=== PATIENT | female | born 1940 | race Caucasian/White ===

== ENCOUNTER 2024-05-26 09:58 | Outpatient (AMB) | payer MEDICARE, SELFPAY ==
--- NOTE | 2024-05-26 10:13 | A.OFFVIS_ITS ---
Vital Signs 05/26/24 10:18 Height 5 ft 4.5 in Weight 180 lb 6 oz BMI 30.5 BP 130/70 Blood Pressure Location Lt brachial Pulse 71 Pulse Source Pulse Oximeter Pulse Oximetry (%) 99 Oxygen Delivery Method Room Air Intake Visit Reasons: Arthritis Intake Note: Patient presents for follow up on RA. Accompanied by: Spouse Allergies No Known Allergies Allergy (Verified 05/26/24 10:22) HPI HPI Arthritis: Details: She is experiencing sensation in her toes at night with increased pressure and decreased flexibility. Sometimes she has to wake up and walk and then go back to sleep. It is occurring nightly for a few months. She experiences fatigue and irritability after taking methotrexate on Friday. These symptoms last up until Friday sometimes. She has pain in right knee with walking for the last month. She received cortisone injection to right knee 6 months ago with benefit. PFSH Surgical History (Updated 05/26/24 @ 10:28 by Aleah Tavarez CMA) S/P left knee arthroscopy Family History (Updated 05/26/24 @ 10:30 by Aleah Tavarez CMA) Mother Heart disease Father Parkinson's disease Brother Heart disease Social History (Updated 05/26/24 @ 10:31 by Aleah Tavarez CMA) Alcohol intake: current Alcohol type: wine Patient Tobacco Use Status: Never used Tobacco Review of Systems Const All systems reviewed & are unremarkable except as noted in HPI and below Physical Exam Vital Signs: Last Vital Signs Pulse 71 05/26/24 10:18 BP 130/70 05/26/24 10:18 Pulse Ox 99 05/26/24 10:18 Oxygen Delivery Method Room Air 05/26/24 10:18 BMI result Body Mass Index 30.5 Const Other: General: Comfortable CVS: RRR Respiratory: clear to auscultation bilaterally. Good respiratory effort Skin: No lesions seen MSK: No tenderness of joints in upper extremity. No synovitis. Good range of motion of upper extremity. She has tenderness of paste anserine bursa right knee. No joint line tenderness. Right knee hypertrophy noted. Knee flexion 90 degrees. No MTP tenderness. No tenderness of toes on palpation. Assessment & Plan Assessment & Plan (1) Rheumatoid arthritis: Comment: I am suspecting the discomfort and stiffness in her toes at night is due to inflammatory arthritis. RA is uncontrolled on monotherapy with methotrexate. She is also experiencing fatigue and irritability after taking methotrexate, self-limited. We discussed adding leflunomide. If pain improves with addition of leflunomide, I will decrease methotrexate dose in the future. Code(s): M06.9 - Rheumatoid arthritis, unspecified Category: Medical Qualifiers: Rheumatoid arthritis location: multiple sites Rheumatoid factor presence: unspecified presence Qualified Code(s): M06.9 - Rheumatoid arthritis, unspecified Plan: Continue methotrexate 22.5 mg once weekly Continue leucovorin 10 mg the day after you take methotrexate Start leflunomide 10 mg daily I reviewed labs from 05/25/2024 Labs due in 1 month after starting leflunomide for drug monitoring on high-risk medication Return to clinic in 3 months (2) Other water chemist (current) drug therapy: Code(s): Z79.899 - Other water chemist (current) drug therapy Category: Medical Plan: See above (3) Pes anserinus bursitis of right knee: Comment: Discussed diagnosis and management Code(s): M70.51 - Other bursitis of knee, right knee Category: Medical Plan: PT ordered Apply diclofenac gel 1% to affected area every 4-6 hours Ice knee daily Return to clinic in 3 months. If pain does not improve or worsen, we will con manager care cortisone injection (4) Osteoarthritis of right knee: Comment: Pain is controlled from last cortisone injection 6 months ago Code(s): M17.11 - Unilateral primary osteoarthritis, right knee Category: Medical Qualifiers: Osteoarthritis type: primary Qualified Code(s): M17.11 - Unilateral primary osteoarthritis, right knee Plan: Return to clinic in 3 months Orders: Orders C Reactive Protein 1 Month Z79.899 - Other water chemist (current) drug therapy Aspartate Amino Transferase 1 Month Z79.60 - business owner/engineer (current) use of unspecified immunomodulators and immunosuppressants Complete Blood Count Auto Diff 1 Month Z79.60 - business owner/engineer (current) use of unspecified immunomodulators and immunosuppressants Creatinine 1 Month Z79.60 - [facility] (current) use of unspecified immunomodulators and immunosuppressants PT Evaluation and Treatment Today M70.51 - Other bursitis of knee, right knee Erythrocyte Sedimentation Rate 1 Month Z79.899 - Other water chemist (current) drug therapy Alanine Aminotransferase Today Z79.60 - business owner/engineer (current) use of unspecified immunomodulators and immunosuppressants Hepatitis B,C Profile 1 Month Z79.899 - Other longterm (current) drug therapy T Spot TB 1 Month Z79.899 - Other longterm (current) drug therapy Medications: New leflunomide 10 mg PO DAILY 30 tabs 0RF Coding Level of Care Code Est Pt Level 4 (67157) Complex EM visit Add On G2211 Diagnoses Rheumatoid arthritis involving multiple sites, unspecified whether rheumatoid factor present M06.9 Rheumatoid arthritis location: multiple sites Rheumatoid factor presence: unspecified presence Other longterm (current) drug therapy Z79.899 Pes anserinus bursitis of right knee M70.51 Primary osteoarthritis of right knee M17.11 Osteoarthritis type: primary
[2024-05-26 10:18] VITALS: BP 130/70; PULSE 71; O2SAT 99; BMI 30.5
--- OUTSIDE RECORDS SUMMARY | 2024-05-26 11:03 | XMS_ITS | Data Portability ---
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 Neurological exam including cognitive testing is unrevealing. Plausibly, very mild worsening of memory relating to aging has enabled this focal word retrieval deficit in the context of anxiety so that if she had this significant anxiety several decades ago she would not have had a similar focal word retrieval deficit. However, she does not have any subjective memory worsening of concern. I cannot definitively say that she has mild cognitive impairment different from ? normal aging.? The differentiation between these 2 categories is a estevez area for medical science more generally. In any case, the emergence over the last 5-10 years of difficulty in remembering someone? s name is not causing problems. I offer further cognitive testing and explain Cognivue: Cognivue is a new FDA approved computerized test, 10 minutes in length, consisting of a set of cognitive probes across cognitive domains that was developed by neurologist/neurosci entist team based on cognitive and neurophysiological data over recent decades. Cognivue probes at the cognitive perceptive boundary and is thus relatively free of subjective biases that exist from various paper and pencil neuropsychology tests of cognitive functioning. She is not interested in moving in that direction. Surveillance for modifiable causes of cognitive slowing is indicated. Her history suggests sleep apnea. This has not escaped the notice of the patient or her partner. The patient has been reluctant to move toward testing because she does not like the idea of CPAP. I suggested that diagnostic investigation to see whether she does indeed have sleep apnea is separate from decision making about using CPAP. CPAP equipment has become progressively less onerous through the years and perhaps she would tolerate CPAP without problem if she indeed has sleep apnea. We discussed the long-term morbidity of untreated sleep apnea: Besides cognitive slowing there is also increased risk of right heart failure and increased risk of stroke. After this discussion she is willing at least to have sleep medicine consultation and home polysomnography. She is agreeable to a referral. I defer laboratories for metabolic dysregulation that might cause cognitive slowing? Vitamin D, thyroid studies, B12 studies? to primary care. Separately, she has had May 2017 30 minute event with altered ability to produce appropriate language. This was diagnosed as TIA during presentation to [facility] per the patient? s report. In this context, high intensity statin is indicated. She is on the appropriate statin, atorvastatin, but not on an appropriate high intensity dose, 40 mg or 80 mg. I have asked the patient to follow-up with primary care on this. PLAN Arden Cavanaugh November 16, 2020 You have had TIA. Atorvastatin high intensity, 40 mg, is indicated for ideal protection against future stroke after TIA. You are only on atorvastatin 20 mg and have no side effects. Please follow-up with primary care to consider increasing atorvastatin. Sleep medicine referral, concern for sleep apnea with snoring and snorting noticed by partner, less well rested in the morning, and singular event of word finding difficulty. [facility] [address] [address] Ph. , Please continue your regular habit of moderate exercise daily for at least 20 minutes such as a brisk walk: There are data reflecting benefit of this simple intervention in slowing any emerging cognitive difficulty, and also benefit more generally in brain health and heart health. Follow-up as needed for any neurological issues. [email or web address] Not available 11/16/2020 19:23:30 Plan of Treatment Reminders Order Date Submit Date Provider Last Modified By Organization Details Last Modified Time Details Appointments None recorded. Lab None recorded. Referral sleep medicine referral - Sleep medicine referral, concern for sleep apnea with snoring and snorting noticed by partner, less well rested in the morning, and singular event of word finding difficulty . 2020 021 [email or web address] Not available 21:51:59 Procedures None recorded. Surgeries None recorded. Imaging None recorded. Medication Orders None recorded. Patient TargetsNo targets recorded. Patient InstructionsNo instructions recorded. Reason for Referral Sleep Medicine Referral for Mild neurocognitive disorder Sleep medicine referral, concern for sleep apnea with snoring and snorting noticed by partner, less well rested in the morning, and singular event of word finding difficulty. Referring Physician: Margarito Heaton, Neurology, Encounter Date: 11/16/2020 Medical Equipment None Reported. Allergies No known drug allergies Medications Name Sig Start Date Stop Date Status Note LastModified by Organization Details LastModified Time nystatin 100,000 unit/mL oral suspension SWISH AND SWALLOW 5ML FOUR TIMES DAILY FOR 10 DAYS active Not Available Not Available No t Available atorvastatin 20 mg tablet active Not Available Not Available Not Available metoprolol succinate ER 50 mg tablet,exten ded release 24 hr active Not Available Not Available Not Available fluorouracil 5 % topical cream APPLY A THIN LAYER 2 TIMES DAILY X 2 WEEKS TO AFFECTED AREA ON THE NOSE active Not Available Not Available No t Available metronidazol e 250 mg tablet TAKE 1 TABLET BY MOUTH 4 TIMES A DAY FOR 2 WEEKS active Not Available Not Available Not Available hydralazine 25 mg tablet active Not Available Not Available Not Available methotrexate sodium 2.5 mg tablet TAKE 8 TABLETS BY MOUTH ONCE PER WEEK active Not Available Not Available No t Available omeprazole 20 mg capsule,laci yed release TAKE 1 CAPSULE BY MOUTH TWICE A DAY active Not Available Not Available No t Available leucovorin calcium 5 mg tablet TAKE 4 TABS BY MOUTH WEEKLY 8 TO 12 HOURS AFTER METHOTREXAT E active Not Available Not Available No t Available digoxin 125 mcg (0.125 mg) tablet active Not Available Not Available N ot Available losartan 100 mg tablet active Not Available Not Available No t Available doxycycline hyclate 100 mg tablet TAKE 1 TABLET BY MOUTH TWICE A DAY FOR 14 DAYS active Not Available Not Available No t Available Stomach Relief 262 mg tablet TAKE 2 TABLETS BY MOUTH 4 TIMES A DAY FOR 14 DAYSNOT COVERED BY INS active Not Available Not Available No t Available hydrochlorot hiazide 12.5 mg tablet active Not Available Not Available No t Available Xarelto 20 mg tablet TAKE 1 TABLET BY MOUTH ONCE DAILY active Not Available Not Available No t Available Vitals Date Recorded Body height Body mass index (BMI) Body weight Provider Name and Address Organization Details Last Updated DateTime 11/16/2020 162.56 cm 26.6 kg/m2 31334.82 g Naida Tovarvre [facility] 11/16/2020 15:03:16 Social History Question Answer Notes LastModified by Organizat ion Details LastModified Time Tobacco Smoking Status Never Smoker Naida Jack pietro [facility] 11/16/2020 15:20:33 What Is Your Level Of Alcohol Consumption? Occasional 4oz/day Information not available 11/16/2020 What Is Your Level Of Caffeine Consumption? Occasional 1/day Information not available 11/16/2020 What Is The Highest Grade Or Level Of School You Have Completed Or The Highest Degree You Have Received? [id number] Information not available 11/16/2020 Which Of Your Hands Is Dominant? Right Information not available 11/16/2020 Sex: Unknown Functional Status None recorded. Mental Status None recorded. Family History Relationship Description Onset Age of this Age Resolved Age Notes LastModified by Organization Details LastModified Time Father Heart disease Not available 11/16 15:18:14 Mother Heart disease Not available 11/16 15:18:15 Mother Hypertensive disorder Not available 11/16 15:18:28 Medical History Condition Response High Blood Pressure or Hypertension Y Heart Disease Y Gynecological HistoryNo gynecological history recorded. Obstetrics History GPAL:G 0 P 0 0 0 0 Past Encounters Encounter ID Performer Location Encounter Start Date Encounter Closed Date Diagnosis/Indication Diagnosis SNOMED-CT Code Diagnosis ICD10 Code Diagnosis Note [id number] Margarito Heaton MD [facility] [address] [place] [address] [place] [address] 11/16/2020 14:52:50 11/20/2020 08:10:21 Mild neurocognitive disorder 082299281 G31.84 Health Concerns Section Related Observation LastModified by Organization Detai ls LastModified Time None Recorded Concern Status LastModified by Organization Details LastModified Time None Recorded Advance Directives Directive None Recorded Payers Encounter Date Sequence Insurance Name Policy Number Policy Levine Covered Member ID Levine Member ID Guarantor Name 11/16/2020 2 [place]IC[place]: [employer] Arden Cavanaugh [id number] Arden Cavanaugh 11/16/2020 1 [facility] - MEDICARE PREFERRED (MEDICARE REPLACEMENT HMO) [id number] Arden Cavanaugh [id number] Arden Cavanaugh Notes Date Note Type Note Provider Name and Address Organization Details Recorded Time 11/16/2020 text/html She presents for initial neurology consultation for assessment and management of an episode of not being able to remember the words ? tricycle? or ? bicycle,? September 06, 2020. Past history includes May 2017 TIA with ? words coming out not matching the question,? resulting in ~30 minutes; atrial fibrillation on Xarelto, hypercholesterolemia , high blood pressure, vitamin D deficiency on vitamin D 2000 units daily; and rheumatoid arthritis on methotrexate 7.5 mg weekly and leucovorin 20 mg. She is accompanied by her spouse, Kat Lorenzo, who helps with history and provide support. On September 06, 2020, she was in an anxious state because she had found a bug in her ear while playing golf. During this period of anxiety, she was looking at a tricycle and could not remember the word ? tricycle.? She also could not remember the word ? bicycle.? These were the only 2 words she could not remember. After a few hours, the anxiety went away and she had no problem remembering words. She had never previously had trouble remembering words in such a way. More generally however, she has noticed that her mind is a little slower over the past 5-10 years. She intermittently has trouble remembering somebody? s name. It often comes to her after a while. She has no problem recalling words for other concepts beside someone? s name. She lives with her partner and does all the cooking. The cooking is mostly easy but nevertheless she has had no increased difficulty in this task. She notices no problems remembering to take her medications accurately. She used to do all the bills. In recent years they moved from a house in [facility] and to independent living in her formerly [facility] community. The bills have become higher and her partner has started doing part of the finances. Both patient and partner emphasized that this was not because finances were becoming harder for the patient. She wakes about twice during the night to go to the bathroom and is able to get back to sleep. She does not wake in the morning as refreshed as she used to and occasionally naps during the day. Her partner notices that she snores and sometimes snorts, stopping breathing. Her mood is up and down for a day or 2 every week after she takes methotrexate but otherwise is good. Her partner agrees. She has no hallucination. Margarito Heaton MD [address] [place] [address] [place], [phone], [facility] 11/16/2020 19:25:24 OBGyn Episode No OBEpisode recorded.
== END 2024-05-26 11:16 | disposition home or self-care (01) ==
PROVIDERS: Visit Provider Internal Medicine Rheumatology
DX: M06.9 Rheumatoid arthritis, unspecified (principal); Z79.899 Other long term (current) drug therapy; M70.51 Other bursitis of knee, right knee; M17.11 Unilateral primary osteoarthritis, right knee
CPT/HCPCS: 99214; G2211

== ENCOUNTER 2024-05-26 09:58 | Outpatient (REF) | payer MEDICARE, SELFPAY ==
--- NOTE | ~2024-05-26 | XR_ITS ---
CLINICAL HISTORY: M79.671 - Pain in right foot 3 view right foot Comparison: None Findings: Bones intact. No dislocations. No significant arthritic change or erosions. No ankle effusion. No radiopaque foreign body. IMPRESSION: 1. No acute findings. This document has been electronically signed by: John Salazar MD on 05/28/2024 07:48:03
--- NOTE | ~2024-05-26 | XR_ITS ---
CLINICAL HISTORY: M79.671 - Pain in right foot 3 view left foot Comparison: None Findings: No fractures or dislocations. No significant loss of joint space, osteophytes, or erosions. No ankle effusion. No radiopaque foreign body. IMPRESSION: 1. No acute findings. This document has been electronically signed by: John Salazar MD on 05/28/2024 07:49:52
--- OUTSIDE RECORDS SUMMARY | 2024-05-26 16:52 | XMS_ITS | Continuity of Care Document ---
Author Organization [facility] Address [address] [place] [address] Phone Care Team Providers Care Orange Peel Operator Name Role Phone Davide RUBY, RVT, JOSE, Devante Unavailable U navailable Allergies, Adverse Reactions, Alerts Substance Reaction Status Criticality No Known Allergies Active No Inform ation Medications Medication Instructions Dosage Effective Dates (start - stop) Status Comments Xarelto 2.5 mg tablet - Active Procedures Procedure Date Office/Outpt E&M Established 15 Mins May Phleb Veins - Extrem - To 20 Inj Scleros Solut; Mx Veins 1 3 Duplex Scan-extrem Veins; Uni/ Endovenous Laser, 1st Vein Endovenous Laser, 1st Vein Offic/outpt E&m Estab 5 Min Trial - Tele medicine Office/Outpt E&M Established 15 Mins Dec Duplex Scan-extrem Veins; Uni/ Offic Cons New/estab Low 30 Mi Advance Directives Directive Yes / No Effective Date File Name Other Directive No N/A N/A WARNING:The information contained in this section is historical and is provided for information only and does not constitute a legal document or any assurance that the information is still accurate. Please verify the information with the rueda of the legal document before using it for clinical purposes. Encounters Encounter Description Practice Location Reason(s) For Visit Diagnoses Date Provider Providers Copied on Encounter Office/Outpt E&M Established 15 Mins [facility] [facility], [address] [place] [address] Dr Tirado [address]Alex[place], [id number], [place] tel:[phone] [place] Localized edemaChronic venous hypertension (idiopathic) without complications of right lower extremity 4 Davide RUBY, RVT, JOSE Low. [address] [place] [address], [place], [place], [id number], [place]. tel:[phone] Referring Provider: Fiona Mcdowell, [address] [place] [address], [place], [address]. tel:[phone] [facility] [facility], [address] [place] [address] Dr Tirado [address]Alexia [place], [id number], [place] tel:[phone] [facility] [place] Varicose veins of right lower extremity with other complications Apr- 3 Roosevelt Harrison. [facility] [place] [address], [place], [place], [id number], [place]. tel:[phone] Referring Provider: Fiona Mcdowell, [address] [place] [address], [place], [address]. tel:[phone] [facility], [address] [place] [address] Dr Tirado [address]Suite Alexia Astorga [place], [id number], [place] tel:[phone] [facility] Encounter for follow-up examination after completed treatment for conditions other than malignant neVaricose veins of right lower extremity with pain Apr-0 3 Nabor RUBY FACS RVT JOSE Tom. [facility] [place] [address], [facility] [place], [address], [place]. tel:[phone] Referring Provider: Fiona Mcdowell, [address] [place] [address], [place], [address]. tel:[phone] [facility], [address] [place] [address] Dr Tirado [address]Alexia [place], [id number], [place] tel:[phone] [facility] [place] Varicose veins of right lower extremity with other complications Dec-0 3 Nabor Tom. [address] [place] [address], [facility] [place], [address], [place]. tel:[phone] Referring Provider: Fiona Mcdowell, [address] [place] [address], [place], [address]. tel:[phone] [place] [facility], [address] [place] [address] [address]Alexia [place], [id number], [place] tel:[phone] [facility] Varicose veins of right lower extremity with other complications Dec-0 3 Nabor Tom. [address] [place] [address], [facility] [place], [address], [place]. tel:[phone] Referring Provider: Fiona Mcdowell, [address] [place] [address], [place], [address]. tel:[phone] Offic/outpt E&m Estab 5 Min Trial - [facility]icine [facility], [address] [place] [address] [address]Alexia [place], [id number], [place] tel:[phone] CVR - [facility] Chronic venous hypertension w oth comp of r low extrem Sep- 3 Nabor Tom. [address] [place] [address], [facility] [place], [address], [place]. tel:[phone] Referring Provider: Fiona Mcdowell, [address] [place] [address], [place], [address]. tel:[phone] Office/Outpt E&M Established 15 Mins [facility], [address] [place] [address] [address]Alexia [place], [id number], [place] tel:[phone] CVR - [facility] Chronic venous hypertension w oth comp of r low extrem Aug- 3 Nabor Tom. [address] [place] [address], [place] [address], [place], [address], [place]. tel:[phone] Referring Provider: Fiona Mcdowell, [address] [place] [address], [place], [address]. tel:[phone] [facility], [address] [place] [address] Dr Tirado [address], [place], [id number], [place] tel:[phone] CVR - [facility] Varicose veins of right lower extremities with pain 3 Nabor RUBY FACS T JOSE Tom. [facility] [place] [address], [place], [address], [place]. tel:[phone] Referring Provider: Fiona Mcdowell, [address] [place] [address], [place], [address]. tel:[phone] Offic Cons New/estab Low 30 Mi [facility], [address] [place] [address] Dr Tirado [address], [place], [id number], [place] tel:[phone] [facility] hypertension w oth comp of r low extremFlail joint, unspecified joint 3 Nabor RUBY FACS T JOSE Tom. [address] [place] [address], [place], [address], [place]. tel:[phone] Referring Provider: Fiona Mcdowell, [address] [place] [address], [place], [address]. tel:[phone] Family History Family Member Type Diagnosis Age At Onset No Information Payers Payer name Insurance type Covered democrat ID Lauren cotto(s) [facility] Medicare Advantage [id number] Social History Type Description Quantity Date Captured Comments Alcohol Use Details Unknown Caffeine Use Details Unknown Tobacco Use Status Current non-smoker Smoking Status Never Smoker Non-Smoking Tobacco Use Details : No Details Available : No Details Available Sex Female Vital Signs Date / Time: Height Weight BMI Pulse Rate Blood Pressure Temperature Respiratory Rate Body Surface Area Head Circumference Head Circ. Percentile Wt./Amadeo. Percentile BMI percentile Pulse Ox Inhaled Ox 78.470 kg (173.00 lbs) 28.8 6 kg/m eter (2) 160/100 mm[Hg] Chief Complaint And Reason For Visit No Information Reason For Referral Reason For Referral No Information Plan Of Treatment Date Type Action Status Goal Diet education completed Goal Diet education completed Goal Diet education completed Goal Diet education completed Referral Ordered: Fiona Andrew MD timeframe: 3 Months (related to Essential (primary) hypertension) ordered Referral Ordered: Weight management: Referral to physician timeframe: 3 Months (related to Body mass index (BMI) 28.0-28.9, adult) ordered Referral Ordered: Fiona Andrew MD timeframe: 3 Months (related to Essential (primary) hypertension) ordered Referral Ordered: Weight management: Referral to physician timeframe: 3 Months (related to Body mass index (BMI) 28.0-28.9, adult) ordered History Of Present Illness Encounter Date Complaint History Of Prese nt Illness No Information Functional Status Date Functional Assessmen t No Information Instructions Date Instruction Additional Infor mation Diet education Related to Essen tial (primary) hypertension Exercise education Related to Es sential (primary) hypertension Lifestyle education Related to E ssential (primary) hypertension Diet education Related to Body mass index (BMI) 28.0-28.9, adult Giving Encouragement to exercise Related to Body mass index (BMI) 28.0-28.9, adult Lifestyle education Related to B nate mass index (BMI) 28.0-28.9, adult Patient education booklet given Related to Localized edema Patient education booklet given Related to Chrn Vns Hyprtnsn w/Compl (Pain Edema Swelling); RIGHT Diet education Related to Body mass index (BMI) 28.0-28.9, adult Giving Encouragement to exercise Related to Body mass index (BMI) 28.0-28.9, adult Diet education Related to Essen tial (primary) hypertension Exercise education Related to Es sential (primary) hypertension Lifestyle education Related to E ssential (primary) hypertension Lifestyle education Related to B nate mass index (BMI) 28.0-28.9, adult Patient education booklet given Related to Chronic venous hypertension w oth comp of r low extrem Assessments Type Assessment Date No Information Patient Care Teams Name Effective Dates (start - stop) Status Members No Information
== END 2024-05-26 09:59 | disposition home or self-care (01) ==
LOC: HO.XRAY 09:58
PROVIDERS: Visit Provider Internal Medicine Rheumatology
DX: M79.671 Pain in right foot (principal); M06.9 Rheumatoid arthritis, unspecified; M70.51 Other bursitis of knee, right knee; M17.11 Unilateral primary osteoarthritis, right knee; Z79.60 Long term (current) use of unspecified immunomodulators and immunosuppressants; Z79.899 Other long term (current) drug therapy
CPT/HCPCS: 73630; 99212

== ENCOUNTER → 2024-05-26 14:21 | Outpatient (BNV) | payer MEDICARE, SELFPAY | PROVIDERS: Visit Provider Specialist | DX: M79.671 Pain in right foot (principal); M79.672 Pain in left foot | CPT/HCPCS: 73630 ==

== ENCOUNTER 2024-06-15 09:01 | Outpatient (AMB) | payer MEDICARE, SELFPAY ==
[2024-06-15 09:11] VITALS: BP 126/76; PULSE 106; O2SAT 99; BMI 30.8
--- NOTE | 2024-06-15 09:11 | MHC.OFFVIS ---
Vital Signs 06/15/24 09:11 Height 5 ft 4.5 in Weight 182 lb 4 oz BMI 30.8 BP 126/76 Blood Pressure Location Lt brachial Position Sitting Pulse 106 H Pulse Source Pulse Oximeter Pulse Oximetry (%) 99 Oxygen Delivery Method Room Air Intake Visit Reasons: knee injection Intake Note: Patient presents for follow up on RA, she was last seen on 05/26/[address] Arcos. She states mainly her right knee is more painful. Allergies No Known Allergies Allergy (Verified 06/15/24 09:15) PFSH Surgical History (Updated 05/26/24 @ 10:28 by Aleah Tavarez CMA) S/P left knee arthroscopy Family History (Updated 05/26/24 @ 10:30 by Aleah Tavarez CMA) Mother Heart disease Father Parkinson's disease Brother Heart disease Social History (Updated 05/26/24 @ 10:31 by Aleah Tavarez CMA) Alcohol intake: current Alcohol type: wine Patient Tobacco Use Status: Never used Tobacco Physical Exam Vital Signs: Last Vital Signs Pulse 106 H 06/15/24 09:11 BP 126/76 06/15/24 09:11 Pulse Ox 99 06/15/24 09:11 Oxygen Delivery Method Room Air 06/15/24 09:11 BMI result Body Mass Index 30.8 Const Other: General: Comfortable Skin: No lesions seen MSK: She has tenderness to palpate along right knee joint line. She does not have tenderness on palpation of anserine bursa. Right Knee flexion is limited to 100 degrees Office Procedures AMB Joint Injection/Aspiration Joint Injection/Aspiration Details: Right knee joint Prep: site was prepped using aseptic technique Injected: 40 mg of, Kenalog, with 1 mL of and 1% plain lidocaine Procedure: The patient tolerated the procedure well. Postprocedure protocol was discussed with patient. Coding 81534 - Large joint Procedure code (CPT) selection complete Office Meds lidocaine (PF) 10 mg/mL (1 %) injection solution Performing Provider: Jim Arcos MD Performing Location: [facility] Administered by: Jim Arcos MD on 06/15/24 09:56 Dose Route Admin Location Dispensed Lot Number Expiration Date [facility] Mathematics Teacher 10 mg Infiltration 5 mL [id number] LAKIA/MEGAN Kenalog 40 mg/mL suspension for injection Performing Provider: Jim Arcos MD Performing Location: [facility] Administered by: Jim Arcos MD on 06/15/24 09:56 Dose Route Admin Location Dispensed Lot Number Expiration Date [facility] Mathematics Teacher 40 mg intra-articular 1 mL AP [id number] [employer] Assessment & Plan Assessment & Plan (1) Osteoarthritis of right knee: Comment: Pain pain is not controlled. Last cortisone injection lasted 6 months. Code(s): M17.11 - Unilateral primary osteoarthritis, right knee Category: Medical Qualifiers: Osteoarthritis type: primary Qualified Code(s): M17.11 - Unilateral primary osteoarthritis, right knee Plan: Patient received right knee intra-articular cortisone injection this visit (2) Foot pain, bilateral: Comment: Improving with physical therapy stretches. X-ray bilateral feet did not reveal any arthritic changes. Personally reviewed x-ray with patient. Code(s): M79.671 - Pain in right foot; M79.672 - Pain in left foot Category: Medical Plan: Continue physical therapy Orders: Orders AMB Joint Injection/Aspiration Today M17.11 - Unilateral primary osteoarthritis, right knee Medications: New lidocaine (PF) 10 mg Infiltration ONCE 1 mL 0RF M17.11 - Unilateral primary osteoarthritis, right knee Kenalog (triamcinolone acetonide) 40 mg intra-articular ONCE 1 mL 0RF NS M17.11 - Unilateral primary osteoarthritis, right knee Coding Level of Care Code Est Pt Level 4 (44825) Diagnoses Primary osteoarthritis of right knee M17.11 Osteoarthritis type: primary Foot pain, bilateral M79.671; M79.672 CPT Codes Coding - 96714 Large joint: 68838 - Large joint ([id number])
--- OUTSIDE RECORDS SUMMARY | 2024-06-15 09:22 | XMS_ITS | Data Portability ---
Author Organization [facility] [employer] Address [address] [place] [address] BREANN [place]RIOS [address] Care Team Providers Care Technical Applications Scientist Name Role Phone ERIC BUTTS Referring Provider LUCHO FERNÁNDEZ Referring Provider [phone] Assessment Encounter Date Assessment Date Assessment LastModified [...] was diagnosed as TIA during presentation to [facility] per the patient? s report. In [...] word finding difficulty. Sleep Medicine Services of [address] [address] Ph. , Please continue your regular habit [...] Updated DateTime 11/16/2020 162.56 cm 26.6 kg/m2 20607.82 g Naida Tovarvre [facility] 11/16/2020 15:03:16 Social History Question Answer Notes LastModified by Organizat ion Details LastModified Time Tobacco Smoking Status Never Smoker Naida Jack pietro [facility] 11/16/2020 15:20:33 What Is Your Level Of Alcohol Consumption? Occasional 4oz/day Information not available 11/16/2020 What Is Your Level Of Caffeine Consumption? Occasional 1/day Information not available 11/16/2020 What Is The Highest Grade Or Level Of School You Have Completed Or The Highest Degree You Have Received? [id number] Information not available 11/16/2020 Which Of Your [...] Code Diagnosis Note 1180 Margarito Heaton MD [facility] [address] [place] [address] [place] [address] 11/16/2020 14:52:50 11/20/2020 08:10:21 Mild neurocognitive disorder [id number] G31.84 Health Concerns Section Related Observation LastModified by Organization Detai ls LastModified Time None Recorded Concern Status LastModified by Organization Details LastModified Time None Recorded Advance Directives Directive None Recorded Payers Encounter Date Sequence Insurance Name Policy Number Policy Levine Covered Member ID Levine Member ID Guarantor Name 11/16/2020 2 [place]IC[place]: [employer] Arden Cavanaugh [id number] Arden Cavanaugh 11/16/2020 1 [facility] - MEDICARE PREFERRED (MEDICARE REPLACEMENT HMO) [id number] Arden Cavanaugh [id number] Arden Cavanaugh Notes Date Note Type [...] years they moved from a house in [facility] and to independent living in her [facility] care community. The bills have become higher [...] She has no hallucination. Margarito Heaton MD [address] [place] [address] [place], [address], [facility] 11/16/2020 19:25:24 OBGyn Episode No OBEpisode recorded.
== END 2024-06-15 09:55 | disposition home or self-care (01) ==
PROVIDERS: Visit Provider Internal Medicine Rheumatology
DX: M17.11 Unilateral primary osteoarthritis, right knee (principal); M79.671 Pain in right foot; M79.672 Pain in left foot
CPT/HCPCS: 20610; 99214

== ENCOUNTER → 2024-06-15 09:01 | Outpatient (BNVA) | payer MEDICARE, SELFPAY | PROVIDERS: Visit Provider Internal Medicine Rheumatology | DX: M17.11 Unilateral primary osteoarthritis, right knee (principal); M79.671 Pain in right foot; M79.672 Pain in left foot | CPT/HCPCS: 20610; 99212; J2003; J3300 ==

== ENCOUNTER 2024-09-02 09:24 | Outpatient (REF) | payer MEDICARE, SELFPAY ==
--- OUTSIDE RECORDS SUMMARY | 2024-09-02 12:02 | XMS_ITS | Clinical Summary ---
Author Organization [facility] [employer] Address [address] [place], [place] [address] Phone Care Team Providers Care Resident Care Supervisor Name Role Phone Fiona Andrew MD Primary Care Provider [phone]- [phone] Allergies Active Allergy Reactions Criticality Noted Date Comments Wdhvmheh-Isufcnoja-Znplpxd ne 07/07/2020 Sensitivity to antibiotics: stomach upset-Allergy [...] Problems Problem Noted Date Diagnosed Date A-fib (CMS/[facility] V24, [facility] V28) 04/13/2024 Overview (04/13/2024): Last Assessment & [...] Description 06/21/2024 10:00 AM EST Office Visit [facility] [address] [place] [address] Aron Redding MD Mitral and aortic regurgitation (Primary Dx); Paroxysmal atrial fibrillation ([facility] V24, [facility] V28) from Last 3 Months Surgical History Surgery Date Site/Laterality Comments KNEE ARTHROSCOPY 2010 Left PROCEDURE: MD ARTHROSCOPY AID TX SPINE&/FX KNEE W/O FIXJ MOLE REMOVAL PROCEDURE: HISTORICAL MOLE (REMOVAL OF) KNEE SURGERY 2010 Left PROCEDURE: HISTORICAL KNEE SURGERY Medical History Medical History Date Comments Rheumatoid arthritis ([facility]/ C V24, [facility] V28) DX:Rheumatoid arthritis ([facility] ) A-fib ([facility] V24, [facility] V28) DX:A-fib ([facility]) History of Helicobacter pylo ri infection DX:History [...] Description 09/20/2024 10:30 AM EDT Ancillary Procedure [facility] [address] [place] [address] Health Maintenance Due Date Last [...] Most Recently Relevant to Health Maintenance Insurance [facility] Care Teams Resident Care Supervisor Relationship Specialty Start Date End Date Fiona Andrew MD [address] [place] [phone] PCP - General 06/16/20
--- OUTSIDE RECORDS SUMMARY | 2024-09-02 12:02 | XMS_ITS | Continuity of Care Document ---
Author Organization [facility] Address [address] [place] [address] Phone Care Team Providers Care Selling Underwriter Name Role Phone Davide RUBY, RVT, JOSE, [...] on Encounter Office/Outpt E&M Established 15 Mins [facility], [address] [place] [address] Dr Tirado [address]Alexia [place], [id number], [place] tel:[phone] CVR - MD - Ronan Localized edemaChronic venous hypertension (idiopathic) without complications of right lower extremity 4 Davide RUBY, RVT, JOSE Low. [address] [place] [address], [place], [place], [id number], [place]. tel:[phone] Referring Provider: Fiona Mcdowell, [address] [place] [address], [place], [address]. tel:[phone] [facility], [address] [place] [address] Dr Tirado [address]Alexia [place], [id number], [place] tel:[phone] CVR - MD - Ronan Varicose veins of right lower extremity with other complications Apr- 3 Roosevelt Harrison. [facility] [place] [address], [place], [place], [id number], [place]. tel:[phone] Referring Provider: Fiona Mcdowell, [address] [place] [address], [place], [address]. tel:[phone] [facility], [address] [place] [address] Dr Tirado 1000Suite Alexia Astorga [place], [id number], [place] tel:[phone] CVR - MD - Ronan Encounter for follow-up examination after completed treatment for conditions other than malignant neVaricose veins of right lower extremity with pain Apr-0 3 Nabor RUBY FACS RVT JOSE Tom. [facility] [place] [address], [place], [address], [place]. tel:[phone] Referring Provider: Fiona Mcdowell, [address] [place] [address], [place], [address]. tel:[phone] [facility], [address] [place] [address] Dr Tirado [address]Alexia [place], [id number], [place] tel:[phone] CVR - MD - Ronan Varicose veins of right lower extremity with other complications Dec-0 3 Nabor Tom. [address] [place] [address], [place], [address], [place]. tel:[phone] Referring Provider: Fiona Mcdowell, [address] [place] [address], [place], [address]. tel:[phone] [facility], [address] [place] [address] [address]Alexia [place], [id number], [place] tel:[phone] CVR - MD - Ronan Varicose veins of right lower extremity with other complications Dec-0 3 Nabor Tom[address] [place] [address], [facility] [place], [address], [place]. tel:[phone] Referring Provider: Fiona Mcdowell, [address] [place] [address], [place], [address]. tel:[phone] Offic/outpt E&m Estab 5 Min Trial - Telemedicine [facility], [address] [place] [address] [address]Alexia [place], [id number], [place] tel:[phone] CVR - [facility] Chronic venous hypertension w oth comp of r low extrem Sep- 3 Nabor Tom. [address] [place] [address], [facility] [place], [address], [place]. tel:[phone] Referring Provider: Fiona Mcdowell, [address] [place] [address], [place], [address]. tel:[phone] Office/Outpt E&M Established 15 Mins [facility], [address] [place] [address] [address]Alexia [place], [id number], [place] tel:[phone] CVR - [facility] Chronic venous hypertension w oth comp of r low extrem Aug- 3 Nabor Tom. [address] [place] [address], [place] [address], [place], [address], [place]. tel:[phone] Referring Provider: Fiona Mcdowell, [address] [place] [address], [place], [address]. tel:[phone] [facility], [address] [place] [address] Dr [address], [place], [id number], [place] tel:[phone] CVR - [facility] Varicose veins of right lower extremities with pain 3 Nabor RUBY FACS T JOSE Tom. [facility] [address], [place], [address], [place]. tel:[phone] Referring Provider: Fiona Mcdowell, [address] [place] [address], [place], [address]. tel:[phone] Offic Cons New/estab Low 30 Mi [facility], [address] [place] [address] Dr Tirado [address], [place], [id number], [place] tel:[phone] [facility] venous hypertension w oth comp of r low extremFlail joint, unspecified joint 3 Nabor RUBY FACS T JOSE Tom. [address] [place] [address], [place], [address], [place]. tel:[phone] Referring Provider: Fiona Mcdowell, [address] [place] [address], [place], [address]. tel:[phone] Family History Family Member Type Diagnosis Age At Onset No Information Payers Payer name Insurance type Covered constitution party ID Lauren cotto(s) [facility] Medicare Advantage [id number] Social History Type Description Quantity Date Captured [...] index (BMI) 28.0-28.9, adult) ordered Referral Ordered: Finoa Andrew MD timeframe: 3 Months (related to [...]
[2024-09-02 17:39] LABS: MANUAL DIFF FLAG NO
[2024-09-02 17:51] LABS: Basophils Percent Auto 0.5 % (0-2); Eosinophils Absolute Auto 0.3 X10*3/uL (0.0-0.4); Eosinophils Percent Auto 5.3 % (0-4); Hematocrit 42.3 % (37.0-47.0); Imm Gran Abs Auto 0.03 X10*3/uL (0.00-0.03); Imm Gran Pct Auto 0.5 % (0.0-0.4); Lymphocytes Absolute Auto 0.9 X10*3/uL (1.2-4.9); Lymphocytes Percent Auto 16.5 % (20-40); Mean Corpuscular HGB Conc 33.1 g/dl (31.0-35.0); Mean Corpuscular Hemoglobin 33.5 pg (27.0-33.0); Mean Corpuscular Volume 101.2 fL (80.0-98.0); Monocytes Absolute Auto 0.6 X10*3/uL (0.1-1.2); Monocytes Percent Auto 11.2 % (2-11); Neutrophils Absolute Auto 3.8 x10*3/uL (2.0-8.3); Platelet Count 256 X10*3/uL (160-400); Red Blood Count 4.18 X10*6/uL (4.20-5.50); Red Cell Distribution Width 14.1 % (11.0-16.0); White Blood Count 5.7 X10*3/uL (4.8-10.8)
[2024-09-02 18:15] LABS: Alanine Aminotransferase 14 U/L (0-31); Aspartate Amino Transferase 41 U/L (5-31); C Reactive Protein 0.99 mg/dL (< or = 0.50); Estimated Glomerular Filt Rate > 60
[2024-09-02 18:26] LABS: Erythrocyte Sedimentation Rate 32 MM/HR (0-20)
[2024-09-03 03:51] LABS: HBc Num1 0.59 S/CO (0.00-0.79); HBsAGNum1 0.29 S/CO (0.00-0.99); Hepatitis B Core Antibody Nonreactive (Nonreactive); Hepatitis B Surface Antigen Negative (Negative); ~HepC Num1 0.22 S/CO (0.00-0.79); ~Hepatitis B Surface Antibody NONREACTIVE (Nonreactive); ~Hepatitis C Antibody Nonreactive (Nonreactive)
[2024-09-05 07:29] LABS: TS Negative Control Passed; TS Panel A 0; TS Panel B 0; TS Positive Control Passed; TSpotTB Negative (Negative)
== END 2024-09-02 09:25 | disposition home or self-care (01) ==
LOC: HO.HKASLDS 09:24
PROVIDERS: PCP Family Medicine; Visit Provider Internal Medicine Rheumatology
DX: Z13.89 Encounter for screening for other disorder (principal)
CPT/HCPCS: 36415; 82565; 84450; 84460; 85025; 85652; 86140; 86481; 86704; 86706; 86803; 87340

== ENCOUNTER 2024-09-02 09:24 | Outpatient (AMB) | payer MEDICARE, SELFPAY ==
--- NOTE | 2024-09-02 09:27 | A.OFFVIS_ITS ---
Vital Signs 09/02/24 09:34 Height 5 ft 4 in Weight 179 lb 3.773 oz BMI 30.8 BP 150/100 H Blood Pressure Location Rt brachial Position Sitting Pulse 115 H Pulse Oximetry (%) 95 Oxygen Delivery Method Room Air Intake Visit Reasons: 3 mo follow up Intake Note: Patient presents for follow up on RA. Accompanied by: Self / Same As Patient Allergies No Known Allergies Allergy (Verified 09/02/24 09:35) HPI HPI 3 mo follow up: Details: She experiences increased fatigue on Friday. She takes methotrexate on Friday and leucovorin on Friday. Last cortisone injection of right knee only lasted 1 week. She has limited with ambulation. She dreads walking more than 50 ft due to uncontrolled pain. She takes Tylenol 500 mg at night. She has been using diclofenac gel. [facility] Surgical History S/P left knee arthroscopy Family History Mother Heart disease Father Parkinson's disease Brother Heart disease Social History Alcohol intake: current Alcohol type: wine Patient Tobacco Use Status: Never used Tobacco Review of Systems Const All systems reviewed & are unremarkable except as noted in HPI and below Physical Exam Vital Signs: Last Vital Signs Pulse 115 H 09/02/24 09:34 BP 150/100 H 09/02/24 09:34 Pulse Ox 95 09/02/24 09:34 Oxygen Delivery Method Room Air 09/02/24 09:34 BMI result Body Mass Index 30.8 Const Other: General: Comfortable CVS: RRR Respiratory: clear to auscultation bilaterally. Good respiratory effort Skin: No lesions seen MSK: No tenderness of joints in upper extremity. No synovitis. Normal range of motion of upper extremity. Right knee hypertrophy noted with tenderness along joint line. Knee flexion 90 degrees. No ankle or MTP tenderness. Office Procedures AMB Joint Injection/Aspiration Joint Injection/Aspiration Details: Right knee joint Prep: site was prepped using aseptic technique Injected: 40 mg of, Kenalog, with 1 mL of and 1% plain lidocaine Procedure: The patient tolerated the procedure well. Postprocedure protocol was discussed with patient. Coding 89597 - Large joint Procedure code (CPT) selection complete Office Meds lidocaine (PF) 10 mg/mL (1 %) injection solution Performing Provider: Jim Arcos MD Performing Location[place] [facility] Administered by: Jim Arcos MD on 09/02/24 10:25 Dose Route Admin Location Dispensed Lot Number Expiration Date [facility] Arborist Climber 10 mg Infiltration 2 mL [id number] FRESENIUS KA Kenalog 40 mg/mL suspension for injection Performing Provider: Jim Arcos MD Performing Location: [facility] Administered by: Jim Arcos MD on 09/02/24 10:25 Dose Route Admin Location Dispensed Lot Number Expiration Date [facility] Arborist Climber 40 mg intra-articular 1 mL [id number] [facility] Assessment & Plan Assessment & Plan (1) Rheumatoid arthritis: Comment: Controlled on monotherapy with methotrexate. She is experiencing increased fatigue after taking methotrexate. 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 Methotrexate started 2015 to present. Code(s): M06.9 - Rheumatoid arthritis, unspecified Category: Medical Qualifiers: Rheumatoid arthritis location: multiple sites Rheumatoid factor presence: unspecified presence Qualified Code(s): M06.9 - Rheumatoid arthritis, unspecified Plan: Reduced dose of methotrexate to 15 mg once weekly split dose (3 tablets a.m. and 3 tablets p.m.) Continue leucovorin 10 mg 24 hours after taking methotrexate. If she continues to have fatigue with above changes, I can change leucovorin administration 8 hours after methotrexate Labs for disease monitoring on high-risk medication ordered Return to clinic in 3 months (2) Other longitudinal float operator (current) drug therapy: Code(s): Z79.899 - Other longitudinal float operator (current) drug therapy Category: Medical Plan: See above (3) Osteoarthritis of right knee: Comment: Pain pain is not controlled. She received cortisone injection 05/2023 and 05/2024 Code(s): M17.11 - Unilateral primary osteoarthritis, right knee Category: Medical Qualifiers: Osteoarthritis type: primary Qualified Code(s): M17.11 - Unilateral primary osteoarthritis, right knee Plan: Patient received cortisone injection this visit If benefit from cortisone injection is not long lasting, we discussed considering Euflexxa injections. Patient will call office if cortisone injection wears off before next appointment to process VIKY for Euflexxa Right knee x-ray ordered for evaluation of progression of osteoarthritis Continue to use Tylenol 500 mg q.h.s.. She will contact developer architect's to discuss if she can take more Tylenol if she needs it during the day with consideration of being on Xarelto Continue diclofenac gel 1% applied to affected area every 4-6 hours as needed Return to clinic in 3 months Orders: Orders Complete Blood Count Auto Diff Today Z79.60 - terminal press operator (current) use of unspecified immunomodulators and immunosuppressants Creatinine Today Z79.60 - USP (current) use of unspecified immunomodulators and immunosuppressants C Reactive Protein Today Z79.899 - Other senior living (current) drug therapy T Spot TB Today M06.9 - Rheumatoid arthritis, unspecified, Z79.899 - Other longitudinal float operator (current) drug therapy AMB Joint Injection/Aspiration Today M17.11 - Unilateral primary osteoarthritis, right knee Alanine Aminotransferase Today Z79.60 - USP (current) use of unspecified immunomodulators and immunosuppressants Aspartate Amino Transferase Today Z79.60 - USP (current) use of unspecified immunomodulators and immunosuppressants Erythrocyte Sedimentation Rate Today Z79.899 - Other senior living (current) drug therapy Hepatitis B,C Profile Today M06.9 - Rheumatoid arthritis, unspecified, Z79.899 - Other senior living (current) drug therapy XR knee RT 2V Today M17.0 - Bilateral primary osteoarthritis of knee Medications: New leucovorin calcium 10 mg on Friday 10 mg PO DAILY 90 tabs 4RF leg brace (EPIFANIO Knee Brace) As directed Right knee hinged brace Diagnosis: Knee osteoarthritis 1 ea 0RF Changed From methotrexate sodium 17.5 mg (7 x 2.5 mg) PO QWEEK 28 tabs 2RF To methotrexate sodium 15 mg (6 x 2.5 mg) PO QWEEK 28 tabs 2RF Coding Level of Care Code Est Pt Level 4 (93731) Complex EM visit Add On G2211 Diagnoses Rheumatoid arthritis involving multiple sites, unspecified whether rheumatoid factor present M06.9 Rheumatoid arthritis location: multiple sites Rheumatoid factor presence: unspecified presence Other senior living (current) drug therapy Z79.899 Primary osteoarthritis of right knee M17.11 Osteoarthritis type: primary CPT Codes Coding - 43924 Large joint: 54485 - Large joint ([id number]) Time Spent (min) 30
[2024-09-02 09:34] VITALS: BP 150/100; PULSE 115; O2SAT 95; BMI 30.8
--- OUTSIDE RECORDS SUMMARY | 2024-09-02 10:19 | XMS_ITS | Data Portability ---
Author Organization [facility] [employer], S B E Address [address] [place] [address] [place] [address] Care Team Providers Care Field Servicer Name Role Phone ERIC BUTTS Referring Provider LUCHO FERNÁNDEZ Referring Provider Assessment Encounter Date Assessment Date Assessment LastModified [...] has mild cognitive impairment different from ? n ormal aging.? The differentiation between these 2 categories [...] metabolic dysregulation that might cause cognitive slowing? V itamin D, thyroid studies, B12 studies? t o primary care. Separately, she has had May 2017 30 minute event with altered ability to produce appropriate language. This was diagnosed as TIA during presentation to [facility] per the patient? s report. In this [...] word finding difficulty. Sleep Medicine Services of [address] [address] Ph. , Please continue your regular habit of moderate exercise daily for at least 20 minutes such as a brisk walk: There are data reflecting benefit of this simple intervention in slowing any emerging cognitive difficulty, and also benefit more generally in brain health and heart health. Follow-up as needed for any neurological issues. balta Not available 11/16/2020 19:23:30 Plan of Treatment Reminders Order Date Submit Date Provider Last Modified By Organization Details Last Modified Time Details Appointments None recorded. Lab None recorded. Referral sleep medicine referral - Sleep medicine referral, concern for sleep apnea with snoring and snorting noticed by partner, less well rested in the morning, and singular event of word finding difficulty . 2020 Joaquina carter 1 Not available 21:51:59 Procedures None recorded. [...] Updated DateTime 11/16/2020 162.56 cm 26.6 kg/m2 62032.82 g Naida [facility] 11/16/2020 15:03:16 Social History Question Answer Notes LastModified by Organizat ion Details LastModified Time Tobacco Smoking Status Never Smoker Naida [facility] 11/16/2020 15:20:33 What Is Your Level Of Alcohol Consumption? Occasional 4oz/day Information not available 11/16/2020 What Is Your Level Of Caffeine Consumption? Occasional 1/day Information not available 11/16/2020 What Is The Highest Grade Or Level Of School You Have Completed Or The Highest Degree You Have Received? [id number] Information not available 11/16/2020 Which Of Your [...] Code Diagnosis Note 1180 Margarito Heaton MD [facility] [address] [place] [address] [place] [address] 11/16/2020 14:52:50 11/20/2020 08:10:21 Mild neurocognitive disorder 093719788 G31.84 Health Concerns Section Related Observation LastModified by Organization Detai ls LastModified Time None Recorded Concern Status LastModified by Organization Details LastModified Time None Recorded Advance Directives Directive None Recorded Payers Encounter Date Sequence Insurance Name Policy Number Policy Levine Covered Member ID Levine Member ID Guarantor Name 11/16/2020 2 MEDICARE [place]: [email or web address] Arden Cavanaugh [id number] Arden Cavanaugh 11/16/2020 1 [facility] - MEDICARE PREFERRED (MEDICARE REPLACEMENT HMO) [id number] Arden Cavanaugh [id number] Arden Cavanaugh Notes Date Note Type Note Provider Name and Address Organization Details Recorded Time 11/16/2020 text/html She presents for initial neurology consultation for assessment and management of an episode of not being able to remember the words ? t ricycle? or ? b icycle,? September 06, 2020. Past history includes May 2017 TIA with ? w ords coming out not matching the question,? resulting in ~30 minutes; atrial fibrillation on Xarelto, hypercholesterolemi a, high blood pressure, vitamin D deficiency on [...] and could not remember the word ? t ricycle.? She also could not remember the word ? b icycle.? These were the only 2 words she [...] years they moved from a house in [facility] and to independent living in her continued care community. The bills have become higher [...] She has no hallucination. Margarito Heaton MD [address] [place] [address] [place], [address], [facility] 11/16/2020 19:25:24 OBGyn Episode No OBEpisode recorded.
--- OUTSIDE RECORDS SUMMARY | 2024-09-02 10:19 | XMS_ITS | Continuity of Care Document ---
Author Organization [facility] Address [address] [place] [address] Phone Care Team Providers Care Business Project Manager Name Role Phone Davide RUBY, RVT, JOSE, [...] on Encounter Office/Outpt E&M Established 15 Mins [facility], [address] [place] [address] Dr Tirado [address], [id number], [place] tel:[phone] [facility] [place] Localized edemaChronic venous hypertension (idiopathic) without complications of right lower extremity 4 Davide RUBY, RVT, JOSE Low. [address] [place] [address], [place], [place], [id number], [place]. tel:[phone] Referring Provider: Fiona Mcdowell, [address] [place] [address], [place], [address]. tel:[phone] [facility], [address] [place] [address] Dr Tirado [address]Alex[place], [id number], [place] tel:[phone] [facility] [place] Varicose veins of right lower extremity with other complications Apr- 3 Roosevelt Harrison. [facility] [place] [address], [place], [place], [id number], [place]. tel:[phone] Referring Provider: Fiona Mcdowell, [address] [place] [address], [place], [address]. tel:[phone] [facility], [address] [place] [address] Dr Tirado [address] Alexia [place], [id number], [place] tel:[phone] [facility] [place] Encounter for follow-up examination after completed treatment for conditions other than malignant neVaricose veins of right lower extremity with pain Apr-0 3 Nabor RUBY FACS RVT JOSE Tom. [facility] [place] [address], [facility] [place], [address], [place]. tel:[phone] Referring Provider: Fiona Mcdowell, [address] [place] [address], [place], [address]. tel:[phone] [facility], [address] [place] [address] Dr Tirado [address]Alexia [place], [id number], [place] tel:[phone] [facility] [place] Varicose veins of right lower extremity with other complications Dec-0 3 Nabor Tom. [address] [place] [address], [facility] [place], [address], [place]. tel:[phone] Referring Provider: Fiona Mcdowell, [address] [place] [address], [place], [address]. tel:[phone] [facility], [address] [place] [address] [address]Alexia [place], [id number], [place] tel:[phone] [facility] [place] [facility] [place] Varicose veins of right lower extremity with other complications Dec-0 3 Nabor Tom. [address] [place] [address], [facility] [place], [address], [place]. tel:[phone] Referring Provider: Fiona Mcdowell, [address] [place] [address], [place], [address]. tel:[phone] Offic/outpt E&m Estab 5 Min Trial - Telemedicine [facility], [address] [place] [address] [address]Alexia [place], [id number], [place] tel:[phone] CVR - [facility] Chronic venous hypertension w oth comp of r low extrem Sep- 3 Nabor Tom. [address] [place] [address], [facility] [place], [address], [place]. tel:[phone] Referring Provider: Fiona Mcdowell, [address] [place] [address], [place], [address]. tel:[phone] Office/Outpt E&M Established 15 Mins [facility], [address] [place] [address] [address]Alexia [place], [id number], [place] tel:[phone] CVR - [facility] Chronic venous hypertension w oth comp of r low extrem Aug- 3 Nabor Tom. [address] [place] [address], [place] [address], [place], [address], [place]. tel:[phone] Referring Provider: Fiona Mcdowell, [address] [place] [address], [place], [address]. tel:[phone] [facility], [address] [place] [address] Dr [address], [place], [id number], [place] tel:[phone] CVR - [facility] Varicose veins of right lower extremities with pain 3 Nabor RUBY FACS T JOSE Tom. [facility] [address], [place], [address], [place]. tel:[phone] Referring Provider: Fiona Mcdowell, [address] [place] [address], [place], [address]. tel:[phone] Offic Cons New/estab Low 30 Mi [facility], [address] [place] [address] Dr Tirado [address], [place], [id number], [place] tel:[phone] [facility] venous hypertension w oth comp of r low extremFlail joint, unspecified joint 3 Nabor RUBY FACS T JOSE Tom. [address] [place] [address], [place], [address], [place]. tel:[phone] Referring Provider: Fiona Mcdowell, [address] [place] [address], [place], [address]. tel:[phone] Family History Family Member Type Diagnosis Age At Onset No Information Payers Payer name Insurance type Covered alliance party ID Lauren cotto(s) [facility] Medicare Advantage [id number] Social History Type Description Quantity Date Captured [...]
--- OUTSIDE RECORDS SUMMARY | 2024-09-02 10:19 | XMS_ITS | Clinical Summary ---
Author Organization [facility] [employer] Address [address] [place], [place] [address] Phone Care Team Providers Care Plastic Molding Operator Name Role Phone Fiona Andrew MD Primary Care Provider [phone] Allergies Active Allergy Reactions Criticality Noted Date Comments Dccpieoy-Yadzejjtn-Bovwtzu ne 07/07/2020 Sensitivity to antibiotics: stomach upset-Allergy Medications atorvastatin (LIPITOR) 20 mg tablet Take 1 tablet (20 mg total) by mouth 1 (one) time each day. Active cholecalciferol , vitamin D3, 75 mcg (3,000 unit) tablet Take 2 drops by mouth 1 (one) time each day. Active CYANOCOBALAMIN, VITAMIN B-12, ORAL Take by mouth 1 (one) time each day. Active hydrALAZINE (APRESOLINE) 25 mg tablet Take 1 tablet (25 mg total) by mouth 2 (two) times a day. Active hydroCHLOROthia zide (MICROZIDE) 12.5 mg capsule Take 1 capsule (12.5 mg total) by mouth every other day. Active leucovorin 10 mg tablet Take 2 tablets (20 mg total) by mouth 1 (one) time per week Active losartan (COZAAR) 100 mg tablet Take 1 tablet (100 mg total) by mouth 1 (one) time each day. Active methotrexate 2.5 mg tablet Take 7 tablets (17.5 mg total) by mouth 1 (one) time per week Active metoprolol succinate (TOPROL-XL) 50 mg 24 hr tablet Take 1 tablet (50 mg total) by mouth 1 (one) time each day. 01/14/2024 Active Xarelto 20 mg tablet TAKE ONE (1) TABLET (20 MG) BY MOUTH DAILY. 90 tablet 3 07/23/2024 Active Active Problems Problem Noted Date Diagnosed Date A-fib (CMS/[facility] V24, [facility] V28) 04/13/2024 Overview (04/13/2024): Last Assessment & Plan: She is on Xarelto and doing well on this. She is on an appropriate dose based on her creatinine clearance greater than 50. I have asked her to increase her metoprolol from 50 mg to 75 mg. Hopefully this will get her heart rates under better control. She will let us know if she has any side effects or feels poorly on the increased dose. When she was on 100 mg she felt more depressed. If this is the case then we will switch her to a twice daily beta-kalpana to see if she tolerates this better. Assessment & Plan (06/21/2024 11:59 AM EST): Paroxysmal atrial fibrillation. Continue metoprolol for ventricular rate control which appears to be adequate. Continue Xarelto for anticoagulation. Edema 11/11/2022 Overview (04/13/2024): Last Assessment & Plan: We did discuss her leg pain and her leg edema. This is likely related to deep vein reflux and her varicose veins. She states that she will be seeing Dr. Tomlin in consultation for this. We will follow-up on the outcomes of that. Shortness of breath 07/30/2022 Overview (04/13/2024): Last Assessment & Plan: Patient reports shortness of breath which has been present since after she had COVID February 2022. She is going for a stress test later this week and we will review the results when available. I have also requested that she complete an echocardiogram so that we may continue to monitor her moderate mitral regurgitation and moderate tricuspid regurgitation. She does not present with any clinical symptoms of heart failure and she appears euvolemic on exam today. Hypercholesteremia 05/16/2022 Overview (04/13/2024): Last Assessment & Plan: Her lipids have been stable. She is doing well on her Lipitor. Leg pain 05/16/2022 Overview (04/13/2024): Last Assessment & Plan: We did discuss her leg discomfort. Its not completely clear what the etiology of this is. I have discussed different positional changes that she can try to see if this makes it feel better so we can tease out if there is an element of spinal stenosis. We also discussed that this could be due to venous congestion and venous insufficiency I recommended that she keep her legs elevated as best that she can, avoid salt and use compression stockings. Hopefully this will help to improve her symptoms as well. Based on these trials will determine if any other testing such as a venous reflux study needs to be done to evaluate this further. If it worsens of course she will let us know. Tricuspid regurgitation 05/16/2022 Mitral and aortic regurgitation 02/07/2021 Overview (04/13/2024): Last Assessment & Plan: She does have moderate to severe mitral and moderate tricuspid regurgitation with pulmonary hypertension. We will continue to monitor these. We did discuss that this could be causing some of her leg edema as well. At this point she is on hydrochlorothiazide and does not appear to be volume overloaded. We will continue her on this and continue to monitor. If things worsen or change she will let us know and we will make further adjustments. Assessment & Plan (06/21/2024 12:00 PM EST): Moderate to severe mitral regurgitation. This appears to be stable based on echocardiograms going back to 2020. Continue with blood pressure control which is well-controlled at present. She has had in the past lower extremity edema which I believe is most consistent with venous insufficiency. No current evidence of volume overload. Will plan to monitor her heart valves with a repeat echocardiogram this year. If it is stable then every 2 years would be a reasonable schedule. HTN (hypertension) 07/10/2020 Overview (04/13/2024): Last Assessment & Plan: Her blood pressure has been stable on her current medications. She will continue on these with the adjustment in her metoprolol. Encounters Date Type Department Care Team Description 06/21/2024 10:00 AM EST Office Visit [facility] [address] [place] [address] Aron Redding MD Mitral and aortic regurgitation (Primary Dx); Paroxysmal atrial fibrillation ([facility] V24, [facility] V28) from Last 3 Months Surgical History Surgery Date Site/Laterality Comments KNEE ARTHROSCOPY 2010 Left PROCEDURE: [place] ARTHROSCOPY AID [place] SPINE&/FX KNEE W/O FIXJ MOLE REMOVAL PROCEDURE: HISTORICAL MOLE (REMOVAL OF) KNEE SURGERY 2010 Left PROCEDURE: HISTORICAL KNEE SURGERY Medical History Medical History Date Comments Rheumatoid arthritis ([facility]/ C V24, [facility] V28) DX:Rheumatoid arthritis ([facility] ) A-fib ([facility] V24, [facility] V28) DX:A-fib ([facility]) History of Helicobacter pylo ri infection DX:History of Helicobacter p ylori infection H. pylori infection DX:H. pylori infection Covid-19 02/2022 DX:COVID-19 Family History Medical History Relation Name Comments Coronary artery disease Brother Other: Heart Disease Father Parkinson's Disease Father Other: Heart Disease Mother Relation Name Status Comments Brother Father Mother Son Alive Social History Tobacco Use Types Packs/Day Years Used Date Smoking Tobacco: Never Smokeless Tobacco: Never Alcohol Use Standard Drinks/Week Comments Yes 0 (1 standard drink = 0.6 oz pur e alcohol) Comments Unknown Sex and Gender Information Value Date Recorded Sex Assigned at Not on file Legal Sex Female 7:54 PM EST Gender Identity Not on file Sexual Orientation Not on file Obstetrics History Last Filed Vital Signs Vital Sign Reading Time Taken Comments Blood Pressure 130/82 06/21/2024 9:38 AM EST Pulse 87 06/21/2024 9:38 AM EST Temperature - - Respiratory Rate - - Oxygen Saturation 97% 06/21/2024 9:38 AM EST Inhaled Oxygen Concentration - - Weight 80.7 kg (178 lb) 06/21/2024 9:38 AM EST Height 163.8 cm (5' 4.5 ) 06/21/2024 9:38 AM EST Body Mass Index 30.08 06/21/2024 9:38 AM EST Plan of Treatment Upcoming Encounters Date Type Department Care Team (Late st Contact Info) Description 09/20/2024 10:30 AM EDT Ancillary Procedure [facility] [address] [place] [address] Health Maintenance Due Date Last Done Comments DTaP,Tdap,and Td Vaccines (1 - Tdap) 09/06/1959 RSV Immunization Adult Patients (1 - 1-dose 75+ series) 09/06/2014 Depression Screening 04/20/2022 Falls Risk Assessment 04/20/2022 Osteoporosis Screening (Bone Density Screening) 04/20/2022 Social Influencers of Health Screening 04/20/2022 COVID-19 Vaccine (9 - Pfizer risk season) 2024 02/24/2024, 08/29/2023, 03/14/2023, Additional history exists Hypertension/CHF/CAD Annual BMP Blood Test 11/09/2024 11/10/2023, 11/10/2023, 05/20/2023, Additional history exists Influenza Vaccine (Season Ended) 2025 02/20/2023, 01/28/2022, 03/10/2021, Additional history exists Cholesterol Screening (Lipid Panel) 03/07/2027 03/07/2022, 03/07/2022 Zoster Vaccines Completed 12/25/2018, 10/16/2018 Pneumococcal Vaccine: 50+ Years Completed 09/08/2020, 10/10/2014 HIB Vaccines Aged Out No longer eligi ble based on patient's age to complete this topic HPV Vaccines Aged Out No longer eligi ble based on patient's age to complete this topic Hepatitis A Vaccines Aged Out No long er eligible based on patient's age to complete this topic Hepatitis B Vaccines Aged Out No long er eligible based on patient's age to complete this topic IPV Vaccines Aged Out No longer eligi ble based on patient's age to complete this topic MMR Vaccines Aged Out No longer eligi ble based on patient's age to complete this topic Meningococcal ACWY Vaccine Aged Out N o longer eligible based on patient's age to complete this topic Meningococcal B Vaccine Aged Out No l onger eligible based on patient's age to complete this topic RSV Immunization Patients Under 20 months Aged Out No longer eligible based on patient's age to complete this topic Varicella Vaccines Aged Out No longer eligible based on patient's age to complete this topic Procedures Procedure Name Priority Date/Time Associated Diagnosis Comments ANNUAL BMP BLOOD TEST Routine 11/10/2023 LIPID PANEL Routine 03/07/2022 from Last 3 Months or Most Recently Relevant to Health Maintenance Results * Annual BMP Blood Test (11/10/2023) Annual BMP Blood Test abstracted Historical Provider HEALTH MAINTENANCE Final Result * Lipid panel (03/07/2022) LDL/HDL Ratio 0 0 - 0 Triglycerides 0 0 - 0 mg/dL Cholesterol 0 0 - 0 mg/dL HDL 0 0 - 0 mg/dL LDL Cholesterol 0 0 - 0 mg/dL Blood Venous blood specimen / Unknown Historical Provider LAB BLOOD ORDERABLES Sveta l Result from Last 3 Months or Most Recently Relevant to Health Maintenance Insurance [facility] Care Teams Plastic Molding Operator Relationship Specialty Start Date End Date Fiona Andrew MD [address] [place] [phone] PCP - General 06/16/20
== END 2024-09-02 10:24 | disposition home or self-care (01) ==
LOC: HO.RHES 09:25
PROVIDERS: PCP Family Medicine; Visit Provider Internal Medicine Rheumatology
DX: M06.09 Rheumatoid arthritis without rheumatoid factor, multiple sites (principal); Z79.899 Other long term (current) drug therapy; M17.11 Unilateral primary osteoarthritis, right knee
CPT/HCPCS: 20610; 99214

== ENCOUNTER 2024-09-02 14:35 | Outpatient (REF) | payer MEDICARE, SELFPAY ==
--- NOTE | ~2024-09-02 | XR_ITS ---
CLINICAL HISTORY: M17.0 - Bilateral primary osteoarthritis of knee 2 view right knee Comparison: None Findings: No acute fracture. No dislocation. There is osteopenia. There is moderate narrowing of the medial knee compartment. There are large osteophytes within all 3 knee compartments. There is mild varus angulation of the knee. There is a small to moderate knee effusion. No radiopaque foreign body. There are vascular calcifications. IMPRESSION: 1. Moderately severe osteoarthritis. 2. There is osteopenia. 3. There is a small to moderate knee effusion. This document has been electronically signed by: Elva Terry MD on 09/07/2024 13:32:52
--- OUTSIDE RECORDS SUMMARY | 2024-09-02 17:13 | XMS_ITS | Clinical Summary ---
Author Organization [facility] Address [address] [place], [place] [address] Phone Care Team Providers Care Replenishment Associate Name Role Phone Fiona Andrew MD Primary Care Provider [phone] Allergies Active Allergy Reactions Criticality Noted Date Comments Fyfjqvya-Kjmdzbcdo-Neyuibi ne 07/07/2020 Sensitivity to antibiotics: stomach upset-Allergy [...] Problems Problem Noted Date Diagnosed Date A-fib (CMS/[facility] V24, [facility] V28) 04/13/2024 Overview (04/13/2024): Last Assessment & [...] Description 06/21/2024 10:00 AM EST Office Visit [facility] [address] [place] [address] Aron Redding MD Mitral and aortic regurgitation (Primary Dx); Paroxysmal atrial fibrillation ([facility] V24, [facility] V28) from Last 3 Months Surgical History Surgery Date Site/Laterality Comments KNEE ARTHROSCOPY 2010 Left PROCEDURE: [place] ARTHROSCOPY AID [place] SPINE&/FX KNEE W/O FIXJ MOLE REMOVAL PROCEDURE: HISTORICAL MOLE (REMOVAL OF) KNEE SURGERY 2010 Left PROCEDURE: HISTORICAL KNEE SURGERY Medical History Medical History Date Comments Rheumatoid arthritis ([facility]/ C V24, [facility] V28) DX:Rheumatoid arthritis ([facility] ) A-fib ([facility] V24, [facility] V28) DX:A-fib ([facility]) History of Helicobacter pylo ri infection DX:History [...] Description 09/20/2024 10:30 AM EDT Ancillary Procedure [facility] - [address] [place] [address] Health Maintenance Due Date Last [...] Recently Relevant to Health Maintenance Insurance [facility] Care Teams Replenishment Associate Relationship Specialty Start Date End Date Fiona Andrew MD [address] [place] [phone] PCP - General 06/16/20
== END 2024-09-02 14:36 | disposition home or self-care (01) ==
LOC: HO.HMGCX 14:35
PROVIDERS: PCP Family Medicine; Visit Provider Internal Medicine Rheumatology
DX: M17.0 Bilateral primary osteoarthritis of knee (principal); M06.9 Rheumatoid arthritis, unspecified; Z79.60 Long term (current) use of unspecified immunomodulators and immunosuppressants; Z79.899 Other long term (current) drug therapy
CPT/HCPCS: 20610; 36415; 73560; 82565; 84450; 84460; 85025; 85652; 86140; 86481; 86704; 86706; 86803; 87340; 99212; J2003; J3300

== ENCOUNTER → 2024-09-02 14:39 | Outpatient (BNV) | payer MEDICARE, SELFPAY | PROVIDERS: PCP Family Medicine; Visit Provider Radiology Diagnostic Radiology | DX: M17.0 Bilateral primary osteoarthritis of knee (principal); M85.80 Other specified disorders of bone density and structure, unspecified site | CPT/HCPCS: 73560 ==

== ENCOUNTER 2024-11-02 10:25 | Outpatient (REF) | payer MEDICARE, SELFPAY ==
--- OUTSIDE RECORDS SUMMARY | 2024-11-02 11:37 | XMS_ITS | Clinical Summary ---
Author Organization [facility] Address [address] [place], [place] [address] Phone Care Team Providers Care Canvas Goods Supervisor Name Role Phone Fiona Andrew MD Primary Care Provider [phone] Allergies Active Allergy Reactions Criticality Noted Date Comments Ddqsuswy-Kkkkwaicl-Hohcdnn ne 07/07/2020 Sensitivity to antibiotics: stomach upset-Allergy [...] Problems Problem Noted Date Diagnosed Date A-fib (CMS/[facility] V24, [facility] V28) 04/13/2024 Overview (04/13/2024): Last [...] Encounters Date Type Department Care Team Description 10/05/2024 Telephone [facility] [address] [place] [address] Aron Redding MD Supplement --MSM (Supplement --MSM) 09/20/2024 10:30 AM EDT Ancillary Procedure [facility] Cardiology [facility] [address] [place] [id number] Mitral and aortic regurgitation 09/03/2024 Telephone [facility] [address] [place] [address] Aron Redding MD from Last 3 Months Surgical History Surgery Date Site/Laterality Comments KNEE ARTHROSCOPY 2009 Left PROCEDURE: OR ARTHROSCOPY AID TX SPINE&/FX KNEE W/O FIXJ MOLE REMOVAL PROCEDURE: HISTORICAL MOLE (REMOVAL OF) KNEE SURGERY 2009 Left PROCEDURE: HISTORICAL KNEE SURGERY Medical History Medical History Date Comments Rheumatoid arthritis ([facility]/ C V24, CMS/HCC V28) DX:Rheumatoid arthritis ([facility] ) A-fib (CMS/HCC V24, CMS/[facility] V28) DX:A-fib ([facility]) History of Helicobacter pylo ri [...] Sign Reading Time Taken Comments Blood Pressure 160/108 09/20/2024 11:11 AM EDT Pulse 87 06/21/2024 9:38 AM EST Temperature - - Respiratory Rate - - Oxygen Saturation 97% 06/21/2024 9:38 AM EST Inhaled Oxygen Concentration - - Weight 80.7 kg (178 lb) 09/20/2024 11:11 AM EDT Height 165.1 cm (5' 5 ) 09/20/2024 11:11 AM EDT Body Mass Index 29.62 09/20/2024 11:11 AM EDT Plan of Treatment Health Maintenance Due Date Last Done Comments [...] Procedure Name Priority Date/Time Associated Diagnosis Comments TRANSTHORACIC ECHOCARDIOGRAM (TTE) COMPLETE Routine 09/20/2024 11:11 AM EDT Mitral and aortic regurgitation ANNUAL BMP BLOOD TEST Routine 11/10/2023 LIPID PANEL Routine 03/07/2022 from Last 3 Months or Most Recently Relevant to Health Maintenance Results * (ABNORMAL) TRANSTHORACIC ECHOCARDIOGRAM (TTE) COMPLETE (09/20/2024 11:11 AM EDT) LV EDV (A2C) 56 mL CV PACS LV EDV (A4C) 63 mL CV PACS LV Diastolic Volume (BP) 60 46 - 106 mL CV PACS LV ESV (A2C) 28 mL CV PACS LV ESV (A4C) 28 mL CV PACS LV Systolic Volume (BP) 29 14 - 42 mL CV PACS IVSD 1.1(A) 0.6 - 0.9 cm CV PACS LVIDD 4.7 3.8 - 5.2 cm CV PACS LVIDS 3.3 2.2 - 3.5 cm CV PACS LVOT Diameter 2.2 cm CV PACS LVOT Mean Cesar 0.4 m/s CV PACS LVOT Mean Grad 1 mmHg CV PACS LVOT Mean Grad 1 mmHg CV PACS LVOT Mean Grad 1 mmHg CV PACS LVOT Mean Grad 1 mmHg CV PACS LVOT Peak VTI 13.9 cm CV PACS LVOT Peak Cesar 0.7 m/s CV PACS LVOT Peak Cesar 0.7 m/s CV PACS LVOT Peak Gradient 2 mmHg CV PACS LVPWD 1.1(A) 0.6 - 0.9 cm CV PACS MV E' Tissue Velocity Lateral 10 cm/s CV PACS MV E' Tissue Velocity Septal 5 cm/s CV PACS Ejection Fraction (A2C) 51 % CV PACS Ejection Fraction (A4C) 56 % CV PACS Ejection Fraction (BP) 52 % CV PACS LVOT Area 3.8 cm2 CV PACS LVOT Stroke Volume 53 mL CV PACS Left Atrium Minor [place] 7.5 cm CV PACS Left Atrium Major [place] 7.2 cm CV PACS LA Area Sys (A2C) 33 cm2 CV PACS LA Area Sys (A4C) 31 cm2 CV PACS LA Volume (BP) 115 mL CV PACS LA Size 5.1 cm CV PACS RA Area 23.6 cm2 CV PACS RA 2D Volume 68 mL CV PACS AV Mean Gradient 4 mmHg CV PACS Ao VTI 26.9 cm CV PACS AV Peak Cesar 1.4 m/s CV PACS AV Peak Gradient 8 mmHg CV PACS AV Area Continuity Equation 2.0 cm2 CV PACS AV Area Peak Velocity 2.0 cm2 CV PACS Aortic Sinus Valsalva 3.6 cm CV PACS Ascending Aorta 4.4 cm CV PACS IVC Proximal 2.6 cm CV PACS MV Deceleration Spink 11.8 m/s2 CV PACS E Wave Deceleration Time 107(A) 119 - 242 ms CV PACS MV PHT 31 ms CV PACS MV Peak E Cesar 1.26 m/s CV PACS MV Peak E Cesar 1.26 m/s CV PACS MV Mean Gradient 2 mmHg CV PACS MV Mean Gradient 2 mmHg CV PACS MV VTI 21.3 cm CV PACS Mitral Valve Max Velocity 1.3 m/s CV PACS MV Peak Gradient 7 mmHg CV PACS MV Area PHT 7.1 cm2 CV PACS MV Area Continuity Equation 2.5 cm2 CV PACS PV Acceleration Time 122 ms CV PACS PV Mean Gradient 0 mmHg CV PACS PV Mean Gradient 0 mmHg CV PACS PV VTI 7.8 cm CV PACS PV Peak Velocity 0.5 m/s CV PACS PV Peak Gradient 1 mmHg CV PACS RV Diastolic Basal Dimension 3.2 2.5 - 4.1 cm CV PACS RV S' 7 cm/s CV PACS TAPSE 20 mm CV PACS TR Peak Velocity 2.70 m/s CV PACS TR Peak Gradient 29 mmHg CV PACS LV ESV Index (A4C) 15 mL/m2 CV PACS LV EDV Index (A4C) 34 mL/m2 CV PACS LVOT Stroke Index 28 mL/m2 CV PACS LA Dimension Index 2D 2.7 cm/m2 CV PACS Relative Wall Thickness ratio 0.47 CV PACS LVOT:AV VTI Index 0.52 CV PACS FS 30 % CV PACS LV Mass 2D 188 g CV PACS Ascending Aorta Index 2.34 cm/m2 CV PACS MV VTI:LVOT VTI ratio 1.5 CV PACS LVOT flow 152 mL/s CV PACS RA 2D Volume Index 36 mL/m2 CV PACS ANNIKA Index (VTI) 1.04 cm2/m2 CV PACS ANNIKA Index (Pk Cesar) 1.06 cm2/m2 CV PACS LVIDD Index 2.50 cm/m2 CV PACS LVIDS Index 1.76 cm/m2 CV PACS LV Systolic Volume Index (BP) 15 mL/m2 CV PACS LV Diastolic Volume Index (BP) 32 mL/m2 CV PACS LA Volume Index (BP) 61 mL/m2 CV PACS LV Mass Index 2D 100 g/m2 CV PACS LV EDV Index (A2C) 30 mL/m2 CV PACS LV ESV Index (A2C) 15 mL/m2 CV PACS BSA 1.92 m2 CV PACS Right Ventricular Peak Systolic Pressure 37 mmHg CV PACS Est. RA Pressure 8 mmHg CV PACS Anatomical Region Laterality Modality Ultrasound Narrative 09/20/2024 1:34 PM EDT Left ventricle cavity size is normal. There is mild concentric hypertrophy. Systolic function is low normal with an ejection fraction of 50-55%. 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 Estimated pulmonary pressures previously elevated are now in the normal range. Ascending aorta measurements have increased from 4.1 to 4.4 cm Left Ventricle Left ventricle cavity size is normal. There is mild concentric hypertrophy. Systolic function is low normal with an ejection fraction of 50-55%. There are no regional LV wall motion abnormalities. Right Ventricle Right ventricle cavity appears normal. Systolic function is normal. Left Atrium Left atrium cavity is severely dilated. Right Atrium Right atrium cavity is moderately dilated. IVC/SVC Inferior vena cava structure is normal. RA pressures is estimated to be 8 mmHg (IVC diameter >21 mm and decreases >50% during inspiration). Mitral Valve The leaflets are mildly thickened. There is mild annular calcification. There is moderate regurgitation with a centrally directed jet. There is no evidence of mitral valve stenosis. Tricuspid Valve Tricuspid valve structure is normal. There is mild regurgitation with a central jet. The right ventricular systolic pressure is normal. Aortic Valve The aortic valve is trileaflet. The leaflets are mildly thickened. There is no regurgitation or stenosis. Pulmonic Valve There is no pulmonic valve regurgitation. Ascending Aorta The Sinus of Valsalva is (3.6 cm). The ascending aorta is (4.4 cm). Pericardium Pericardium appears normal. There is no pericardial effusion. Study Details Overall the study quality was adequate. Aron Redding MD CV ECHO PROCEDURES Final Result * Annual BMP Blood Test (11/10/2023) Annual [...] Most Recently Relevant to Health Maintenance Insurance [facility] Care Teams Canvas Goods Supervisor Relationship Specialty Start Date End Date Fiona Andrew MD [address] [place] [phone] PCP - General 06/16/20
[2024-11-02 12:55] LABS: MANUAL DIFF FLAG NO
[2024-11-02 13:07] LABS: Basophils Percent Auto 0.6 % (0-2); Eosinophils Absolute Auto 0.1 X10*3/uL (0.0-0.4); Eosinophils Percent Auto 2.3 % (0-4); Hematocrit 41.8 % (37.0-47.0); Hemoglobin 13.6 g/dl (12.0-16.0); Imm Gran Abs Auto 0.02 X10*3/uL (0.00-0.03); Imm Gran Pct Auto 0.3 % (0.0-0.4); Lymphocytes Absolute Auto 1.1 X10*3/uL (1.2-4.9); Lymphocytes Percent Auto 17.5 % (20-40); Mean Corpuscular HGB Conc 32.5 g/dl (31.0-35.0); Mean Corpuscular Hemoglobin 32.1 pg (27.0-33.0); Mean Corpuscular Volume 98.6 fL (80.0-98.0); Mean Platelet Volume 9.2 fL (9.4-12.3); Monocytes Absolute Auto 0.7 X10*3/uL (0.1-1.2); Monocytes Percent Auto 10.6 % (2-11); NRBC Pct Auto 0.3 /100WBC (0.0-0.2); Neutrophils Absolute Auto 4.2 x10*3/uL (2.0-8.3); Neutrophils Percent Auto 68.7 % (45-73); Platelet Count 303 X10*3/uL (160-400); Red Blood Count 4.24 X10*6/uL (4.20-5.50); White Blood Count 6.2 X10*3/uL (4.8-10.8)
[2024-11-02 13:38] LABS: Alanine Aminotransferase 18 U/L (0-31); Aspartate Amino Transferase 38 U/L (5-31); C Reactive Protein 0.41 mg/dL (< or = 0.50); Estimated Glomerular Filt Rate > 60
[2024-11-02 13:42] LABS: HBS Num1 4.59 mIU/mL (0-7.99); HBc Num1 0.18 S/CO (0.00-0.79); HBsAGNum1 0.41 S/CO (0.00-0.99); Hepatitis B Core Antibody Nonreactive (Nonreactive); Hepatitis B Surface Antigen Negative (Negative); ~HepC Num1 0.19 S/CO (0.00-0.79); ~Hepatitis B Surface Antibody NONREACTIVE (Nonreactive); ~Hepatitis C Antibody Nonreactive (Nonreactive)
[2024-11-02 13:47] LABS: Erythrocyte Sedimentation Rate 18 MM/HR (0-20)
[2024-11-04 19:54] LABS: TS Negative Control Passed; TS Panel A 0; TS Panel B 0; TS Positive Control Passed; TSpotTB Negative (Negative)
== END 2024-11-02 10:26 | disposition home or self-care (01) ==
LOC: HO.HMGCLDS 10:25
PROVIDERS: PCP Family Medicine; Visit Provider Internal Medicine Rheumatology
DX: Z79.899 Other long term (current) drug therapy (principal); Z79.60 Long term (current) use of unspecified immunomodulators and immunosuppressants
CPT/HCPCS: 36415; 82565; 84450; 84460; 85025; 85652; 86140; 86481; 86704; 86706; 86803; 87340

== ENCOUNTER 2024-12-14 09:01 | Outpatient (AMB) | payer MEDICARE, SELFPAY ==
--- NOTE | 2024-12-14 09:04 | MHC.OFFVIS ---
Vital Signs 12/14/24 09:07 Height 5 ft 4 in Weight 176 lb 4 oz BMI 30.2 BP 140/80 H Blood Pressure Location Rt brachial Position Sitting Pulse 101 H Pulse Source Pulse Oximeter Pulse Oximetry (%) 94 Oxygen Delivery Method Room Air Intake Visit Reasons: 3 months Intake Note: Patient presents for follow up on RA. right knee cortisone shot Accompanied by: Spouse Allergies No Known Allergies Allergy (Verified 12/14/24 09:13) HPI HPI 3 months: Details: She feels more sore all over. She continues to feel increased fatigue on the weekend. Methotrexate is administered on Friday. Right knee pain increased a month ago. She had an evaluation with orthopedic surgeon who got hyaluronic acid injection approved. [facility] Surgical History S/P left knee arthroscopy Family History Mother Heart disease Father Parkinson's disease Brother Heart disease Social History Alcohol intake: current Alcohol type: wine Patient Tobacco Use Status: Never used Tobacco Physical Exam Vital Signs: Last Vital Signs Pulse 101 H 12/14/24 09:07 BP 140/80 H 12/14/24 09:07 Pulse Ox 94 12/14/24 09:07 Oxygen Delivery Method Room Air 12/14/24 09:07 BMI result Body Mass Index 30.2 Const Other: General: Comfortable CVS: RRR Respiratory: clear to auscultation bilaterally. Good respiratory effort Skin: No lesions seen MSK: No tenderness of joints in upper extremity. No synovitis. Normal range of motion of upper extremity. Right knee hypertrophy noted with tenderness along joint line. Twhe-pb-[id number] right knee effusion. Knee flexion 90 degrees. No ankle or MTP tenderness. Office Procedures AMB Joint Injection/Aspiration Joint Injection/Aspiration Details: Right knee joint Prep: site was prepped using aseptic technique Injected: 40 mg of, Kenalog, with 1 mL of and 1% plain lidocaine Procedure: Informed verbal consent was obtained. The patient tolerated the procedure well. Postprocedure protocol was discussed with patient. Coding 21270 - Large joint Procedure code (CPT) selection complete Office Meds lidocaine (PF) 10 mg/mL (1 %) injection solution Performing Provider: Jim Arcos MD Performing Location: [facility] Administered by: Jim Arcos MD on 12/14/24 10:07 Dose Route Admin Location Dispensed Lot Number Expiration Date [facility] Blocking Machine Operator 10 mg Infiltration 2 mL [id number] 10/09/26 21093-567-01 [employer] Total Dispensed Waste 2 mL 50 % Kenalog 40 mg/mL suspension for injection Performing Provider: Jim Arcos MD Performing Location: [facility] Administered by: Jim Arcos MD on 12/14/24 10:07 Dose Route Admin Location Dispensed Lot Number Expiration Date [facility] Blocking Machine Operator 40 mg intra-articular 1 mL [id number] 11/08/25 [address]-1 [employer] Total Dispensed Waste 1 mL 0 % Assessment & Plan Assessment & Plan (1) Rheumatoid arthritis: Comment: Controlled on monotherapy with methotrexate. She is experiencing increased fatigue after taking methotrexate, which worsened with lowering dose. She has mild elevation in AST, improving. Since lowering dose of methotrexate she has increased polyarthralgias. We discussed changing p.o. methotrexate to subcutaneous injection for greater bioavailability and better side effect profile compared to p.o. methotrexate. 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 Methotrexate started 2015 to present. Code(s): M06.9 - Rheumatoid arthritis, unspecified Category: Medical Qualifiers: Rheumatoid arthritis location: multiple sites Rheumatoid factor presence: unspecified presence Qualified Code(s): M06.9 - Rheumatoid arthritis, unspecified Plan: She will be scheduled for nurse teaching visit this upcoming Friday. She will take methotrexate 17.5 mg once weekly subcutaneous injection (increase dose back to her prior dose) Continue leucovorin 10 mg 8 hours after taking methotrexate instead of 24 hours after taking methotrexate Labs for disease monitoring on high-risk medication ordered to do in 1 month for close monitoring of LFTs Liver ultrasound with elastography ordered for further evaluation of transaminitis ? Hepatic steatosis Return to clinic in 3 months (2) Osteoarthritis of right knee: Comment: Pain pain is not controlled. She received cortisone injection 05/2023 and 05/2024. We discussed medical management of osteoarthritis of the knee. She agreed to cortisone injection this visit. If cortisone injection does not provide long-term benefit, she will reach out to orthopedic surgeon for hyaluronic acid injection. Code(s): M17.11 - Unilateral primary osteoarthritis, right knee Category: Medical Qualifiers: Osteoarthritis type: primary Qualified Code(s): M17.11 - Unilateral primary osteoarthritis, right knee Plan: Patient received right knee cortisone injection this visit Return to clinic in 3 to 4 months (3) Other terminal supervisor (current) drug therapy: Code(s): Z79.899 - Other terminal supervisor (current) drug therapy Category: Medical Plan: See above Orders: Orders Complete Blood Count Auto Diff 1 Month Z79.899 - Other fci (current) drug therapy Alanine Aminotransferase 1 Month Z79.899 - Other fci (current) drug therapy Creatinine 1 Month Z79.899 - Other fci (current) drug therapy C Reactive Protein 1 Month Z79.899 - Other fci (current) drug therapy US abdomen harper w elastography Today R74.01 - Elevation of levels of liver transaminase levels AMB Joint Injection/Aspiration Today M17.11 - Unilateral primary osteoarthritis, right knee Aspartate Amino Transferase 1 Month Z79.899 - Other fci (current) drug therapy Erythrocyte Sedimentation Rate 1 Month Z79.899 - Other fci (current) drug therapy Medications: New methotrexate sodium 17.5 mg (0.7 mL) subcut QWEEK 10 mL 0RF 12 weeks syringe with needle (Monoject TB Safety Syringe) As directed Use once weekly with methotrexate 100 ea 0RF Coding Level of Care Code Est Pt Level 5 (61120) Diagnoses Rheumatoid arthritis involving multiple sites, unspecified whether rheumatoid factor present M06.9 Rheumatoid arthritis location: multiple sites Rheumatoid factor presence: unspecified presence Primary osteoarthritis of right knee M17.11 Osteoarthritis type: primary Other terminal supervisor (current) drug therapy Z79.899 CPT Codes Coding - Large joint: 70061 - Large joint ([id number]) Time Spent (min) 45
[2024-12-14 09:07] VITALS: BP 140/80; PULSE 101; O2SAT 94; BMI 30.2
--- OUTSIDE RECORDS SUMMARY | 2024-12-14 09:19 | XMS_ITS | Clinical Summary ---
Author Organization [facility] [place] Address [address] [place], [place] [address] Phone Care Team Providers Care Installer Soft Top Name Role Phone Fiona Andrew MD Primary Care Provider [phone]- [phone] Allergies Active Allergy Reactions Criticality Noted Date Comments Pgleeogm-Zkgkqrsoq-Kgkkfmy ne 07/07/2020 Sensitivity to antibiotics: stomach upset-Allergy [...] Problems Problem Noted Date Diagnosed Date A-fib (CMS/[facility] V24, [facility] V28) 04/13/2024 Overview (04/13/2024): Last Assessment [...] Type Department Care Team Description 10/05/2024 Telephone [facility] - [facility] [address] [place] [address] Aron Redding MD Supplement --MSM (Supplement --MSM) 09/20/2024 10:30 AM EDT Ancillary Procedure [facility] - [address] [place] [address] Mitral and aortic regurgitation from Last 3 Months Surgical History Surgery Date Site/Laterality Comments KNEE ARTHROSCOPY 2009 Left PROCEDURE: GA ARTHROSCOPY AID TX SPINE&/FX KNEE W/O FIXJ MOLE REMOVAL PROCEDURE: HISTORICAL MOLE (REMOVAL OF) KNEE SURGERY 2009 Left PROCEDURE: HISTORICAL KNEE SURGERY Medical History Medical History Date Comments Rheumatoid arthritis ([facility]/ C V24, [facility] V28) DX:Rheumatoid arthritis ([facility] ) A-fib (CMS/HCC V24, CMS/[facility] V28) DX:A-fib ([facility]) History of Helicobacter pylo ri infection [...] Patients (1 - 1-dose 75+ series) 09/06/2014 Falls Risk Assessment 04/20/2022 Osteoporosis Screening (Bone Density Screening) 04/20/2022 Social Influencers of Health Screening 04/20/2022 Depression Screening 05/12/2024 COVID-19 Vaccine (9 - Pfizer risk season) 2024 02/24/2024, 08/29/2023, 03/14/2023, Additional history exists Hypertension/CHF/CAD Annual BMP Blood Test 11/09/2024 11/10/2023, 11/10/2023, 05/20/2023, Additional history exists Influenza Vaccine (#1) 2025 , 01/28/2022, 03/10/2021, Additional history exists Cholesterol Screening [...] 11:11 AM EDT Mitral and aortic regurgitation HM ANNUAL BMP BLOOD TEST Routine 11/10/2023 LIPID [...] 53 mL CV PACS Left Atrium Minor Doyle 7.5 cm CV PACS Left Atrium Major Doyle 7.2 cm CV PACS LA Area Sys [...] Proximal 2.6 cm CV PACS MV Deceleration Maries 11.8 m/s2 CV PACS E Wave Deceleration [...] Overall the study quality was adequate. Aron Reddnig MD CV ECHO PROCEDURES Final Result * [...] Most Recently Relevant to Health Maintenance Insurance [facility] Care Teams Installer Soft Top Relationship Specialty Start Date End Date Fiona Andrew MD [address] [place] [phone] PCP - General 06/16/20
--- OUTSIDE RECORDS SUMMARY | 2024-12-14 09:19 | XMS_ITS | Encounter Summary ---
Author Organization [facility] Address [address] [place] [phone] Phone Care Team Providers Care Change Lead Name Role Phone Fiona Andrew MD Primary Care Provider + Encounter Details Date Type Department Care Team (Late st Contact Info) Description 07/27/2021 Ancillary Orders [facility],Outside Imaging [address] [place] [address] System, Provider Not In, [facility] [address] [address] Social History Tobacco Use Types Packs/Day Years Used Date Smoking Tobacco: Never Assessed Comments Unknown Sex and Gender Information Value Date Recorded Sex Assigned at Not on file Legal Sex Female 9:08 AM EDT Gender Identity Not on file Sexual Orientation Not on file documented as of this encounter Plan of Treatment Not on file documented as of this encounter Results * US Breast Outside (No Interpretation) (11/17/2019 12:05 AM EDT) Narrative SYSTEMGENERATED, DOCUMENTATION - 07/27/2021 1:21 PM EDT This study is for PACS storage only and not for interpretation. us Provider Not In System PhD IMG OUTSIDE IMAGING W /OUT INTERPRETATION Final Result * Mammogram Outside (No Interpretation) (11/17/2019 12:00 AM EDT) Narrative SYSTEMGENERATED, DOCUMENTATION - 07/27/2021 1:20 PM EDT This study is for PACS storage only and not for interpretation. us Provider Not In System PhD IMG OUTSIDE IMAGING W /OUT INTERPRETATION Final Result * Mammogram Outside (No Interpretation) (04/19/2019 12:05 AM EST) Narrative SYSTEMGENERATED, DOCUMENTATION - 07/27/2021 1:23 PM EDT This study is for PACS storage only and not for interpretation. us Provider Not In System PhD IMG OUTSIDE IMAGING W /OUT INTERPRETATION Final Result * US Breast Outside (No Interpretation) (04/19/2019 12:00 AM EST) Narrative SYSTEMGENERATED, DOCUMENTATION - 07/27/2021 1:22 PM EDT This study is for PACS storage only and not for interpretation. us Provider Not In System PhD IMG OUTSIDE IMAGING W /OUT INTERPRETATION Final Result * Mammogram Outside (No Interpretation) (10/08/2018 12:05 AM EDT) Narrative SYSTEMGENERATED, DOCUMENTATION - 07/27/2021 1:24 PM EDT This study is for PACS storage only and not for interpretation. us Provider Not In System PhD IMG OUTSIDE IMAGING W /OUT INTERPRETATION Final Result * US Breast Outside (No Interpretation) (10/08/2018 12:00 AM EDT) Narrative SYSTEMGENERATED, DOCUMENTATION - 07/27/2021 1:23 PM EDT This study is for PACS storage only and not for interpretation. us Provider Not In System PhD IMG OUTSIDE IMAGING W /OUT INTERPRETATION Final Result * Mammogram Outside (No Interpretation) (04/01/2018 12:05 AM EST) Narrative SYSTEMGENERATED, DOCUMENTATION - 07/27/2021 1:28 PM EDT This study is for PACS storage only and not for interpretation. us Provider Not In System PhD IMG OUTSIDE IMAGING W /OUT INTERPRETATION Final Result * US Breast Outside (No Interpretation) (04/01/2018 12:00 AM EST) Narrative SYSTEMGENERATED, DOCUMENTATION - 07/27/2021 1:28 PM EDT This study is for PACS storage only and not for interpretation. us Provider Not In System PhD IMG OUTSIDE IMAGING W /OUT INTERPRETATION Final Result * Mammogram Outside (No Interpretation) (03/19/2018 12:00 AM EST) Narrative SYSTEMGENERATED, DOCUMENTATION - 07/27/2021 1:29 PM EDT This study is for PACS storage only and not for interpretation. us Provider Not In System PhD IMG OUTSIDE IMAGING W /OUT INTERPRETATION Final Result * Mammogram Outside (No Interpretation) (07/16/2016 12:00 AM EST) Narrative SYSTEMGENERATED, DOCUMENTATION - 07/27/2021 1:29 PM EDT This study is for PACS storage only and not for interpretation. us Provider Not In System PhD IMG OUTSIDE IMAGING W /OUT INTERPRETATION Final Result * Mammogram Outside (No Interpretation) (01/26/2014 12:00 AM EDT) Narrative SYSTEMGENERATED, DOCUMENTATION - 07/27/2021 1:30 PM EDT This study is for PACS storage only and not for interpretation. us Provider Not In System PhD IMG OUTSIDE IMAGING W /OUT INTERPRETATION Final Result documented in this encounter Visit Diagnoses Not on filedocumented in this encounter Care Teams Change Lead Relationship Specialty Start Date End Date Fiona Andrew MD [address] [place] [phone] [email or web address] PCP - General Family Medicine 07/24/21 documented as of this encounter Additional Source Comments The information contained in this document represents components of the legal health record. It is not the complete legal health record.[facility]
== END 2024-12-14 10:09 | disposition home or self-care (01) ==
LOC: HO.RHES 09:02
PROVIDERS: PCP Family Medicine; Visit Provider Internal Medicine Rheumatology
DX: M06.9 Rheumatoid arthritis, unspecified (principal); M17.11 Unilateral primary osteoarthritis, right knee; Z79.899 Other long term (current) drug therapy
CPT/HCPCS: 20610; 99215

== ENCOUNTER → 2024-12-14 09:01 | Outpatient (BNVA) | payer MEDICARE, SELFPAY | PROVIDERS: PCP Family Medicine; Visit Provider Internal Medicine Rheumatology | DX: M17.11 Unilateral primary osteoarthritis, right knee (principal); M06.9 Rheumatoid arthritis, unspecified; R74.01 Elevation of levels of liver transaminase levels; Z79.899 Other long term (current) drug therapy | CPT/HCPCS: 20610; 99212; J2003; J3300 ==

== ENCOUNTER 2025-04-19 09:00 | Outpatient (AMB) | payer MEDICARE, SELFPAY ==
[2025-04-19 09:03] VITALS: BP 140/100; PULSE 62; O2SAT 95; BMI 30.2
--- NOTE | 2025-04-19 09:03 | A.OFFVIS_ITS ---
Vital Signs 04/19/25 09:03 Height 5 ft 4 in Weight 175 lb 11.335 oz BMI 30.2 BP 140/100 H Blood Pressure Location Lt brachial Position Sitting Pulse 62 Pulse Source Pulse Oximeter Pulse Oximetry (%) 95 Oxygen Delivery Method Room Air Intake Visit Reasons: 4 months Intake Note: Patient presents for follow up on RA. Accompanied by: Self / Same As Patient Allergies No Known Allergies Allergy (Verified 12/14/24 09:13) HPI HPI 4 months: Details: Fatigue improved with SC MTX. She feels well most days. She may have back pain that lasted day then the next day it will go away. She started walking during the day. She only took Tylenol once in the last 3 months. No recent infections. PFSH Surgical History S/P left knee arthroscopy Family History Mother Heart disease Father Parkinson's disease Brother Heart disease Social History Alcohol intake: current Alcohol type: wine Patient Tobacco Use Status: Never used Tobacco Physical Exam Vital Signs: Last Vital Signs Pulse 62 04/19/25 09:03 BP 140/100 H 04/19/25 09:03 Pulse Ox 95 04/19/25 09:03 Oxygen Delivery Method Room Air 04/19/25 09:03 BMI result Body Mass Index 30.2 Const Other: General: Comfortable CVS: RRR Respiratory: clear to auscultation bilaterally. Good respiratory effort Skin: No lesions seen MSK: No tenderness of joints in upper extremity. No synovitis. Normal range of motion of upper extremity. Right knee hypertrophy noted with tenderness along joint line. No effusion. Knee flexion 100 degrees. No ankle or MTP tenderness. Assessment & Plan Assessment & Plan (1) Rheumatoid arthritis: Comment: Controlled on monotherapy with methotrexate. Labs from 03/11/2025 reviewed with normal LFTs. She had remote transaminitis. Liver ultrasound December 2024 reveals hepatic steatosis. 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 Methotrexate started 2015 to present. Code(s): M06.9 - Rheumatoid arthritis, unspecified Category: Medical Qualifiers: Rheumatoid arthritis location: multiple sites Rheumatoid factor presence: unspecified presence Qualified Code(s): M06.9 - Rheumatoid arthritis, unspecified Plan: Continue methotrexate 17.5 mg once weekly subcutaneous injection Continue leucovorin 10 mg 8 hours after taking methotrexate Labs due in 2 months for drug monitoring on high-risk medication If she continues to have transaminitis, we will consider ordering ultrasound with liver elastography for further evaluation Immunizations are up-to-date Return to clinic in 3 months (2) Osteoarthritis of right knee: Comment: Pain pain is controlled with last cortisone injection December 2024. She received cortisone injection 05/2023 and 05/2024. She will restart exercises learned from PT in the past. She is having difficulty going upstairs due to limited full extension. Code(s): M17.11 - Unilateral primary osteoarthritis, right knee Category: Medical Qualifiers: Osteoarthritis type: primary Qualified Code(s): M17.11 - Unilateral primary osteoarthritis, right knee Plan: Resume home exercise program Return to clinic in 3 months (3) Other shelter (current) drug therapy: Code(s): Z79.899 - Other shelter (current) drug therapy Category: Medical Plan: See above Medications: Discontinued methotrexate sodium Discontinued Reason: Doctor's Order 15 mg (6 x 2.5 mg) PO QWEEK 28 tabs 2RF Coding Level of Care Code Est Pt Level 4 (24208) Complex visit Add On G2211 Diagnoses Rheumatoid arthritis involving multiple sites, unspecified whether rheumatoid factor present M06.9 Rheumatoid arthritis location: multiple sites Rheumatoid factor presence: unspecified presence Primary osteoarthritis of right knee M17.11 Osteoarthritis type: primary Other terminal supervisor (current) drug therapy Z79.899
== END 2025-04-19 09:35 | disposition home or self-care (01) ==
LOC: HO.RHES 09:01
PROVIDERS: PCP Family Medicine; Visit Provider Internal Medicine Rheumatology
DX: M06.9 Rheumatoid arthritis, unspecified (principal); M17.11 Unilateral primary osteoarthritis, right knee; Z79.899 Other long term (current) drug therapy
CPT/HCPCS: 99214; G2211

== ENCOUNTER → 2025-04-19 09:00 | Outpatient (BNVA) | payer MEDICARE, SELFPAY | PROVIDERS: PCP Family Medicine; Visit Provider Internal Medicine Rheumatology | DX: M17.11 Unilateral primary osteoarthritis, right knee (principal); M05.772 Rheumatoid arthritis with rheumatoid factor of left ankle and foot without organ or systems involvement; M05.771 Rheumatoid arthritis with rheumatoid factor of right ankle and foot without organ or systems involvement; Z79.899 Other long term (current) drug therapy | CPT/HCPCS: 99212 ==